=== PATIENT | male | born 1975 | race Caucasian/White ===

== ENCOUNTER 2017-09-12 08:54 | Inpatient (IN) | payer SELFPAY ==
[2017-09-12] VITALS (9 sets, daily range): BP systolic 133–165; BP diastolic 81–105; PULSE 67–76; TEMP 36.6–37.3; O2SAT 95–99; Ht 182.9 cm; Wt 119.0 kg
[~2017-09-12] VITALS: Ht 182.9 cm; Wt 119.0 kg
[2017-09-12 09:22] LABS: BASO % 0.4 %; BASO ABS # 0.05 K/uL (0-0.2); EOS % 0.9 %; HEMATOCRIT 50.4 % (42-52); HEMOGLOBIN 17.8 g/dL (14.0-18.0); IG# 0.03 K/uL (0.00-0.02); LYMPH % 9.9 %; LYMPH ABS # 1.16 K/uL (1.2-3.4); MEAN CELL VOLUME 96.9 fL (80-100); MEAN CORPUSCULAR HEMOGLOBIN 34.2 pg (25-34); MEAN CORPUSCULAR HGB CONC 35.3 g/dl (32-36); MEAN PLATELET VOLUME 11.3 fL (7.4-10.4); MONO % 5.6 %; MONO ABS # 0.66 K/uL (0.11-0.59); NEUT % 82.9 %; PLATELET COUNT 260 K/uL (130-400); RED CELL DISTRIBUTION WIDTH CV 13.1 % (11.5-14.5); RED CELL DISTRIBUTION WIDTH SD 46.8 fL (36.4-46.3)
[2017-09-12] MEDS ORDERED: CBD OIL NEB (09:23)
--- NOTE | 2017-09-12 09:23 | DIAGNOSTIC IMAGING REPORT ---
CHEST ONE VIEW PORTABLE CLINICAL HISTORY: 42 years-old Male presenting with CHEST PAIN, numbness. TECHNIQUE: Portable upright AP view of the chest was obtained. COMPARISON: None. FINDINGS: Cardiomediastinal silhouette normal. Lungs and pleural spaces clear. Osseous structures normal. Upper abdomen normal. IMPRESSION: 1. No acute cardiopulmonary disease. Electronically signed by: Efrain Lobo M.D. 09/12/2017 9:22 AM Dictated Date/Time: 09/12/2017 9:21 AM
[2017-09-12 09:46] LABS: ALBUMIN 4.2 gm/dl (3.4-5.0); CREATININE 1.04 mg/dl (0.60-1.40); TOTAL PROTEIN 7.6 gm/dl (6.4-8.2)
[2017-09-12 09:47] LABS: POTASSIUM 4.1 mmol/L (3.5-5.1)
[2017-09-12] MEDS ORDERED: NITROGLYCERIN 2% OINTMENT 30GM TUBE EXT ONE (10:00)
[2017-09-12] MEDS ORDERED: HEPARIN SOD 5000 UNIT/0.5 ML CARP ONE (10:06)
[2017-09-12] MEDS ORDERED: HEPARIN 25000 UNIT/500 ML D5W ONE (10:06)
[2017-09-12] MEDS ORDERED: ONDANSETRON INJ 2 MG/ML 2 ML VIAL IV PRN (10:15)
[2017-09-12] MEDS ORDERED: NITROGLYCERIN 0.4 MG SL PER TAB CHARGE SL PRN (10:15)
[2017-09-12] MEDS ORDERED: MoRPHine SULFATE 2 MG/ML CARP IV PRN (10:15)
[2017-09-12] MEDS ORDERED: POLYETHYLENE (MIRALAX) 17 GM PACK PO PRN (10:15)
[2017-09-12] MEDS ORDERED: ALUMINUM/MAGNESIUM/SIMETH (MAALOX MAX) 30 ML UDC PO PRN (10:15)
[2017-09-12] MEDS ORDERED: MAGNESIUM HYDROXIDE SUSP 30 ML UDC PO PRN (10:15)
[2017-09-12] MEDS ORDERED: HEPARIN IV LOW DOSE NO BOLUS STA (10:54)
--- NOTE | 2017-09-12 10:54 | History and Physical ---
History & Physical Date & Time of Service: Sep 12, 2017 at 10:38 Chief Complaint: Chest Pain,Numbness Primary Care Physician: No Doctor, Assigned History of Present Illness Source: patient, family 42 year old male smoker presented to the Emergency Room with complaints of intermittent chest pain for the past 1 month. He has not been to the doctors in over 10 years. Two days ago he was carrying some potted plants and developed left sided chest pain that subsided with rest. This morning at 0500 he was awakened by severe left sided chest pain that radiated to his left arm. Maybe some slight shortness of breath associated with it. He denies nausea, vomiting or diaphoresis. No cough, fever or chills and no changes in bowel or bladder function. Maybe some left posterior flank waxing and waning pain over the last month as well. denies significant cardiac history in family, although he is not sure about his dad's health. He has smoked since he was 17. His mom is hospitalized in [place] and he has been running back and forth a lot in the last week. D-dimer was negative. EKG did not have any acute ST elevations and was sinus. CXr was with no active disease. 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 He admits to "very minor" shortness of breath during the episode. This morning around 0500, the patient awoke to a dull ache in his chest and another episode of left arm numbness. He rates his pain as a 5/10 in severity. 4 Aspirin have provided minimal relief. Exertion worsens his pain. He admits to recent car travel back and forth to [place], [place] to visit his Mother who just had surgery. He is a current smoker. He believes there is a family history of hypertension and cardiac disease. The patient admits he has not seen a PCP in over 10 years. Pt denies LOC, headache, fevers, chills, diaphoresis, visual changes, neck pain , nausea, vomiting, abdominal pain, back pain, melena, hematochezia, urinary symptoms, numbness, weakness, lymphadenopathy, rash, or other complaints. Past Medical/Surgical History Medical Problems: (1) Asthma (2) Non-ST elevation (NSTEMI) myocardial infarction (3) Tobacco abuse Past Surgical History Denies any significant surgeries. 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17 Smoking Status: Current Every Day Smoker Smokeless Tobacco Use: No Alcohol Use: was a heavy drinker until 14 years ago, now does not drink Occupational Status: employed Allergies Coded Allergies: Opium (Unverified Adverse Reaction, Intermediate, NAUSEA, 09/12/17) Home Medications Scheduled [Cbd Oil], Unknown Dose NEB DAILY Review of Systems Constitutional: No fever, No chills, No sweats, No weight loss, No weakness, No fatigue, No problem reported Eyes: No worsening of vision, No eye pain, No redness, No discharge, No diplopia, No problem reported ENT: No hearing loss, No unusual epistaxis, No nasal symptoms, No sore throat, No tinnitus, No dental problems, No trouble swallowing, No problem reported Respiratory: No cough, No sputum, No wheezing, No shortness of breath, No dyspnea on exertion, No dyspnea at rest, No hemoptysis, No problem reported Cardiovascular: + chest pain Abdomen: No pain, No nausea, No vomiting, No diarrhea, No constipation, No GI bleeding, No problem reported Musculoskeletal: + problem reported (occassional left flank pain) Genitourinary - Male: No hematuria, No dysuria, No urinary frequency, No urinary urgency, No urinary hesitancy, No urinary retention, No urinary incontinence, No penile discharge, No lesions, No impotence, No problem reported Neurologic: No memory loss, No paralysis, No weakness, No numbness/tingling, No vertigo, No balance problems, No problem reported Psychiatric: No depression symptoms, No anhedonism, No anxiety, No insomnia, No substance abuse, No problem reported Endocrine: No fatigue, No excessive thirst, No excessive urination, No problem reported Hematologic / Lymphatic: No abnormal bleeding/bruising, No clotting problems, No swollen lymph nodes, No night sweats, No problem reported Integumentary: No rash, No itch, No new/changing skin lesions, No color change , No bleeding, No problem reported Allergic / Immunologic: No environmental allergies, No seasonal allergies, No pet sensitivities, No food allergies, No hives, No frequent infections, No poor healing, No prolonged convalescence, No problem reported Physical Exam Vital Signs Date Time Temp Pulse Resp B/P (MAP) Pulse Ox O2 Delivery O2 Flow Rate FiO2 09/12/17 10:21 71 09/12/17 10:17 99 Room Air 09/12/17 09:16 77 09/12/17 09:09 99 Room Air 09/12/17 08:55 36.5 90 20 183/108 98 Room Air 09/12/17 08:55 98 Room Air General Appearance: WD/WN, no apparent distress Head: normocephalic, atraumatic Eyes: normal inspection, PERRL, sclerae normal ENT: hearing grossly normal, pharynx normal Neck: supple, no JVD, no carotid bruits Respiratory/Chest: chest non-tender, lungs clear, normal breath sounds, no respiratory distress Cardiovascular: regular rate, rhythm, no edema, no gallop, no JVD, no murmur, normal peripheral pulses Abdomen/GI: normal bowel sounds, non tender, soft, no organomegaly Back: normal inspection, no CVA tenderness, no muscle spasm Extremities/Musculoskelatal: normal inspection, no calf tenderness, no pedal edema Neurologic/Psych: alert, normal mood/affect, oriented x 3 Skin: normal color, warm/dry, no rash Diagnostics Laboratory Results Results Past 24 Hours Test 09/12/17 09:10 09/12/17 09:15 09/12/17 09:50 Range/Units White Blood Count 11.70 4.8-10.8 K/uL Red Blood Count 5.20 4.7-6.1 M/uL Hemoglobin 17.8 14.0-18.0 g/dL Hematocrit 50.4 42-52 % Mean Corpuscular Volume 96.9 80-100 fL Mean Corpuscular Hemoglobin 34.2 25-34 pg Mean Corpuscular Hemoglobin Concent 35.3 32-36 g/dl Platelet Count 260 130-400 K/uL Mean Platelet Volume 11.3 7.4-10.4 fL Neutrophils (%) (Auto) 82.9 % Lymphocytes (%) (Auto) 9.9 % Monocytes (%) (Auto) 5.6 % Eosinophils (%) (Auto) 0.9 % Basophils (%) (Auto) 0.4 % Neutrophils # (Auto) 9.70 1.4-6.5 K/uL Lymphocytes # (Auto) 1.16 1.2-3.4 K/uL Monocytes # (Auto) 0.66 0.11-0.59 K/uL Eosinophils # (Auto) 0.10 0-0.5 K/uL Basophils # (Auto) 0.05 0-0.2 K/uL RDW Standard Deviation 46.8 36.4-46.3 fL RDW Coefficient of Variation 13.1 11.5-14.5 % Immature Granulocyte % (Auto) 0.3 % Immature Granulocyte # (Auto) 0.03 0.00-0.02 K/uL Sodium Level 139 136-145 mmol/L Potassium Level 4.1 3.5-5.1 mmol/L Chloride Level 108 98-107 mmol/L Carbon Dioxide Level 24 21-32 mmol/L Anion Gap 7.0 3-11 mmol/L Blood Urea Nitrogen 17 7-18 mg/dl Creatinine 1.04 0.60-1.40 mg/dl Est Creatinine Clear Calc Drug Dose 123.0 ml/min Estimated GFR () 101.4 Estimated GFR (Non- 87.5 BUN/Creatinine Ratio 16.4 10-20 Random Glucose 113 70-99 mg/dl Calcium Level 9.0 8.5-10.1 mg/dl Total Bilirubin 1.0 0.2-1 mg/dl Direct Bilirubin 0.2 0-0.2 mg/dl Aspartate Amino Transf (AST/SGOT) 49 15-37 U/L Alanine Aminotransferase (ALT/SGPT) 44 12-78 U/L Alkaline Phosphatase 62 45-117 U/L Total Protein 7.6 6.4-8.2 gm/dl Albumin 4.2 3.4-5.0 gm/dl Lipase 201 73-393 U/L Bedside D-Dimer 271 0-450 ng/mlFEU Bedside Troponin I 1.900 0-0.045 ng/ml Diagnostic Radiology CHEST ONE VIEW PORTABLE CLINICAL HISTORY: 42 years-old Male presenting with CHEST PAIN, numbness. TECHNIQUE: Portable upright AP view of the chest was obtained. COMPARISON: None. FINDINGS: Cardiomediastinal silhouette normal. Lungs and pleural spaces clear. Osseous structures normal. Upper abdomen normal. IMPRESSION: 1. No acute cardiopulmonary disease CXR normal EKG normal sinus rhythm - No acute ST elevations - some t wave depressions in anterolateral leads Impression Assessment and Plan 42 year old smoker who has not been to PCP in more than 10 years presented to the ED with left sided chest pain and left arm pain. 1. NSTEMI - initial troponin 1.9 in the setting of left sided chest pain. - admit to tele - consult cards - cycle trop - ECHO - started on heparin gtt - will continue - check lipids - start ASA 81mg daily - will likely need BB and statin 2. Asthma - PRN Albuterol 3. tobacco abuse - discussed cessation. 4. DVT prophylaxis - teds and he is on heparin gtt. 5. Full code 6. ELS 2 midnight. 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 He has been up to the bathroom and had a few bites of dinner without issue. 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 Pt denies fever, SOB, abd pain, n/v/c/d, LE pain or swelling. General Appearance: WD/WN, no apparent distress Eye Exam: bilateral eye normal inspection, bilateral eye other (nml sclera) Respiratory: normal breath sounds, no respiratory distress Cardiovascular: normal peripheral pulses, regular rate, rhythm Gastrointestinal: non tender, soft Extremities: non-tender, no pedal edema Neurologic/Psychiatric: alert, normal mood/affect, oriented x 3 Skin Characteristics: normal color, warm/dry Assessment/Plan Agree with plan as outlined above Chest pain with elevated trop on admission, now further elevated to 26 with serials pending Heparin gtt ECHO noted for EF 40-45% with areas of severe and moderate hypokinesis CBC, PRP, ddimer WNL CXR neg Cardiology is aware. I spoke with Dr. Brown who plans to watch trops and monitor, plan is for cath with chest pain.
[2017-09-12 11:15] LABS: PTT PATIENT 71.3 SECONDS (21.0-31.0)
[2017-09-12] MEDS: HEPARIN 25,000 UNIT/500ML D5W 500 ML IV SCH ×2 (11:51→19:04)
[2017-09-12] MEDS: ACETAMINOPHEN 325 MG TAB PO PRN ×2 (13:09→20:00)
[2017-09-12] MEDS ORDERED: PERFLUTREN LIPID MICROSPHERE (DEFINITY) IV ONE (14:08)
--- NOTE | 2017-09-12 15:15 | EMERGENCY ROOM VISIT NOTE ---
History Report prepared by Felipeibgracy: Mony Mondragon Under the Supervision of: Dr. Tristen Munoz M.D. First contact with patient: 09:00 Chief Complaint: CHEST PAIN Stated Complaint: CHEST PAIN,NUMBNESS Nursing Triage Summary: Pt has been having chest pain described as a dull aching numbness radiating into his left arm since 0500. This is not the first time he has felt this pain, has not been to a PCP in over a decade. Pain gets worse with exertion, relieved with rest in the past, but today it is not going away. History of Present Illness The patient is a 42 year old male who presents to the Emergency Room with complaints of intermittent chest pain for the past 1 month. 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 He admits to "very minor" shortness of breath during the episode. This morning around 0500, the patient awoke to a dull ache in his chest and another episode of left arm numbness. He rates his pain as a 5/10 in severity. 4 Aspirin have provided minimal relief. Exertion worsens his pain. He admits to recent car travel back and forth to [place], [place] to visit his Mother who just had surgery. He is a current smoker. He believes there is a family history of hypertension and cardiac disease. The patient admits he has not seen a PCP in over 10 years. Pt denies LOC, headache, fevers, chills, diaphoresis, visual changes, neck pain, nausea, vomiting, abdominal pain, back pain, melena, hematochezia, urinary symptoms, numbness, weakness, lymphadenopathy, rash, or other complaints. Source of History: patient Onset: 0500 this morning Position: chest Symptom Intensity: 5/10 Quality: ache, dull Timing: intermittent Modifying Factors (Relieving): other (Aspirin) Associated Symptoms: + SOB Review of Systems See HPI for pertinent positives and negatives. A total of ten systems were reviewed and were otherwise negative. Past Medical & Surgical Medical Problems: (1) Asthma (2) Non-ST elevation (NSTEMI) myocardial infarction (3) Tobacco abuse Family History Heart disease Hypertension Social History Smoking Status: Current Every Day Smoker Alcohol Use: occasionally Drug Use: none Marital Status: single Housing Status: lives with family Occupation Status: employed Current/Historical Medications Scheduled [Cbd Oil], Unknown Dose NEB DAILY Allergies Coded Allergies: Opium (Unverified Adverse Reaction, Intermediate, NAUSEA, 09/12/17) Physical Exam Vital Signs Date Time Temp Pulse Resp B/P (MAP) Pulse Ox O2 Delivery O2 Flow Rate FiO2 09/12/17 09:16 77 09/12/17 09:09 99 Room Air 09/12/17 08:55 36.5 90 20 183/108 98 Room Air 09/12/17 08:55 98 Room Air Physical Exam GENERAL: Awake, alert, well-appearing, in no distress HENT: Normocephalic, atraumatic. Oropharynx unremarkable. EYES: Normal conjunctiva. Sclera non-icteric. NECK: Supple. No nuchal rigidity. FROM. No masses. RESPIRATORY: Clear to auscultation. No wheezes. No rales. Normal respiratory effort. CARDIAC: Normal rate. Normal rhythm. No murmurs. No rubs. Extremities warm and well perfused. Pulses equal. No JVD. GI: Soft, non-distended. No tenderness to palpation. No rebound or guarding. No masses. RECTAL: Deferred. MUSCULOSKELETAL: Atraumatic. Chest examination reveals no tenderness. The back is symmetrical on inspection without obvious abnormality. There is no CVA tenderness to palpation. No joint edema. LOWER EXTREMITIES: Calves are equal size bilaterally and non-tender. No edema. No discoloration. NEURO: Normal sensorium. No sensory or motor deficits noted. SKIN: No rash or jaundice noted. Medical Decision & Procedures ER Provider Diagnostic Interpretation: Radiology results as stated below per my review and radiologist interpretation: CHEST ONE VIEW PORTABLE CLINICAL HISTORY: 42 years-old Male presenting with CHEST PAIN, numbness. TECHNIQUE: Portable upright AP view of the chest was obtained. COMPARISON: None. FINDINGS: Cardiomediastinal silhouette normal. Lungs and pleural spaces clear. Osseous structures normal. Upper abdomen normal. IMPRESSION: 1. No acute cardiopulmonary disease. Electronically signed by: Erfain Lobo M.D. 09/12/2017 9:22 AM Laboratory Results 09/12/17 09:10 Red Blood Count 5.20, Mean Corpuscular Volume 96.9, Mean Corpuscular Hemoglobin 34.2, Mean Corpuscular Hemoglobin Concent 35.3, Mean Platelet Volume 11.3, Neutrophils (%) (Auto) 82.9, Lymphocytes (%) (Auto) 9.9, Monocytes (%) (Auto) 5.6, Eosinophils (%) (Auto) 0.9, Basophils (%) (Auto) 0.4, Neutrophils # (Auto) 9.70, Lymphocytes # (Auto) 1.16, Monocytes # (Auto) 0.66, Eosinophils # (Auto) 0.10, Basophils # (Auto) 0.05 09/12/17 09:10 Test 09/12/17 09:10 09/12/17 09:15 White Blood Count 11.70 K/uL (4.8-10.8) Red Blood Count 5.20 M/uL (4.7-6.1) Hemoglobin 17.8 g/dL (14.0-18.0) Hematocrit 50.4 % (42-52) Mean Corpuscular Volume 96.9 fL (80-100) Mean Corpuscular Hemoglobin 34.2 pg (25-34) Mean Corpuscular Hemoglobin Concent 35.3 g/dl (32-36) Platelet Count 260 K/uL (130-400) Mean Platelet Volume 11.3 fL (7.4-10.4) Neutrophils (%) (Auto) 82.9 % Lymphocytes (%) (Auto) 9.9 % Monocytes (%) (Auto) 5.6 % Eosinophils (%) (Auto) 0.9 % Basophils (%) (Auto) 0.4 % Neutrophils # (Auto) 9.70 K/uL (1.4-6.5) Lymphocytes # (Auto) 1.16 K/uL (1.2-3.4) Monocytes # (Auto) 0.66 K/uL (0.11-0.59) Eosinophils # (Auto) 0.10 K/uL (0-0.5) Basophils # (Auto) 0.05 K/uL (0-0.2) RDW Standard Deviation 46.8 fL (36.4-46.3) RDW Coefficient of Variation 13.1 % (11.5-14.5) Immature Granulocyte % (Auto) 0.3 % Immature Granulocyte # (Auto) 0.03 K/uL (0.00-0.02) Anion Gap 7.0 mmol/L (3-11) Est Creatinine Clear Calc Drug Dose 123.0 ml/min Estimated GFR () 101.4 Estimated GFR (Non- 87.5 BUN/Creatinine Ratio 16.4 (10-20) Calcium Level 9.0 mg/dl (8.5-10.1) Total Bilirubin 1.0 mg/dl (0.2-1) Direct Bilirubin 0.2 mg/dl (0-0.2) Aspartate Amino Transf (AST/SGOT) 49 U/L (15-37) Alanine Aminotransferase (ALT/SGPT) 44 U/L (12-78) Alkaline Phosphatase 62 U/L (45-117) Total Protein 7.6 gm/dl (6.4-8.2) Albumin 4.2 gm/dl (3.4-5.0) Lipase 201 U/L (73-393) Bedside D-Dimer 271 ng/mlFEU (0-450) Bedside Troponin I 1.900 ng/ml (0-0.045) Laboratory results reviewed by me Medications Administered Medications (Trade) Dose Ordered Sig/[facility] Route Start Time Stop Time Status Last Admin Dose Admin Nitroglycerin (Nitroglycerin 2% Oint) 0.5 inch NOW ONCE EXT 09/12/17 10:00 09/12/17 10:01 DC 09/12/17 10:02 0.5 INCH Heparin Sodium/ Dextrose (Heparin 25,000 Unit/500ml D5W) 25,000 unit STK-MED ONCE .ROUTE 09/12/17 10:06 09/12/17 10:07 DC 09/12/17 10:13 25,000 UNIT Heparin Sodium (Porcine) (Heparin Sq 5000 Unit/0.5ml) 5,000 unit STK-MED ONCE .ROUTE 09/12/17 10:06 09/12/17 10:07 DC 09/12/17 10:13 4,000 UNIT ECG Per My Interpretation Indication: chest pain Rate (beats per minute): 80 Rhythm: normal sinus Findings: ST depression (Lateral, mild) Comparison ECG Date: no prior available Change: Patient's electrocardiogram was interpreted by me. ED Course 0908: The patient was evaluated in room B11B. A complete history and physical exam was performed. 0950: Heparin Sodium/Dextrose bolus and drip IV. 0955: I reevaluated the patient. He is resting comfortably. I discussed his results and my recommendation he remain in the hospital for further evaluation and management and he verbalized complete understanding and agreement. 1000: Nitroglycerin 2% 0.5 inch EXT. 1006: I discussed the patients case with ANDER Shipman [facility] Hospitalist. The patient will be further evaluated. Medical Decision Triage Nursing notes reviewed and agree them. Additional history obtained from the family. The patient's history was concerning for chest pain. Differential diagnosis: Etiologies such as cardiac ischemia, aortic dissection, pulmonary embolism, pneumonia, pneumothorax, musculoskeletal, infections, pericarditis, myocarditis , esophageal rupture, gastrointestinal, as well as others were entertained. Physical examination: As above. ER treatment provided: Patient took aspirin at home Nitropaste IV heparin On reassessment the patient felt better. Diagnostic interpretation by me: The electrocardiogram was concerning for some ST depression The labs revealed a slight leukocytosis on CBC. Chemistry panel was unremarkable. The patient had an elevated troponin concerning for ACS. Imaging studies: Chest x-ray as above The patient has suffered a non-STEMI. Further management in the hospital will be necessary. Consultation: A consultation was placed with the hospitalist. The case was discussed and diagnostics were reviewed. The patient was evaluated in the ER for further treatment. Medication Reconcilliation Current Medication List: was personally reviewed by me Blood Pressure Screening Patient's blood pressure: Elevated blood pressure The patients elevated blood pressure will be further managed by the inpatient hospital medicine team. Consults Time Called: 1002 Consulting Physician: ANDER Shipman [facility] Hospitalist Returned Call: 1006 I discussed the patients case with ANDER Shipman [facility] Hospitalist. The patient will be further evaluated. Impression Primary Impression: NSTEMI (non-ST elevated myocardial infarction) Critical Care I have personally spent greater than 30 minutes of critical care time in the direct management of this patient. This includes bedside care, interpretation of diagnostic studies, and testing, discussion with consultants, patient, and family members, and other required patient management activities. This 30 minutes is in excess of all separately billable procedures. Scribe Attestation The scribe's documentation has been prepared under my direction and personally reviewed by me in its entirety. I confirm that the note above accurately reflects all work, treatment, procedures, and medical decision making performed by me. Departure Information Dispostion Being Evaluated By Hospitalist Referrals No Doctor, Assigned (PCP) Patient Instructions [facility]
--- NOTE | 2017-09-12 15:31 | ECHOCARDIOGRAM REPORT ---
*NOTICE TO RECEIVING REPUBLICAN AGENCY This information is strictly Confidential and protected under [place] law. [place] law prohibits you from making any further disclosure of this information unless further disclosure is expressly permitted by the written consent of the person to whom it pertains or is authorized by law. A general authorization for the release of medical or other information is not sufficient for this purpose. Hospital accepts no responsibility if the information is made available to any other person, INCLUDING THE PATIENT. Interpretation Summary * Name: JAMAAL MCCABE Study Date: 09/12/2017 01:08 PM BP: 161/119 mmHg * Patient Location: C.2T\S\S238\S\2 HR: 82 * : 1975 (M/d/yyyy) Gender: Male Height: 72 in * Age: 42 yrs Ethnicity: CA Weight: 266 lb * Ordering Physician: Jose Chan * Referring Physician: Self, Referred * Performed By: Jan Vickers RDCS * * Reason For Study: Chest pain * BSA: 2.4 m2 * -- Conclusions -- * No prior study available for comparison. * The left ventricle is normal in size. * There is borderline concentric left ventricular hypertrophy. * Left ventricular systolic function is mild to moderately reduced. * Ejection Fraction = 40-45%. * There is severe apical wall hypokinesis. * There is severe septal hypokinesis. * There is moderate anterior wall hypokinesis. * There is no thrombus. * No valvular disease. Procedure Details * A complete two-dimensional transthoracic echocardiogram was performed (2D, M-mode, Doppler and color flow Doppler). * The study was technically adequate. * A contrast injection of Definity was performed to improve assessment for apical thrombus. * Contrast was injected into an intravenous site in the right arm. * One vial of Definity ultrasound contrast was diluted in normal saline to a total volume of 10 ml. A total of '5' ml of solution was administered during imaging. * Lot # [id number] of Definity utilized for procedure. * Expiration date 1APR19. * The attending nurse who injected the contrast agent was Nurse, RN. Left Ventricle * The left ventricle is normal in size. * There is no thrombus. * There is borderline concentric left ventricular hypertrophy. * Left ventricular systolic function is mild to moderately reduced. * Ejection Fraction = 40-45%. * There is severe apical wall hypokinesis. * There is severe septal hypokinesis. * There is moderate anterior wall hypokinesis. Right Ventricle * The right ventricle is normal in size and function. Atria * The left atrial size is normal. * Right atrial size is normal. * The interatrial septum is intact with no evidence for an atrial septal defect. Mitral Valve * The mitral valve is normal in structure and function. * There is no mitral regurgitation noted. Tricuspid Valve * The tricuspid valve is normal in structure and function. * Significant tricuspid regurgitation is absent. Aortic Valve * The aortic valve is trileaflet. * No aortic regurgitation is present. Pulmonic Valve * The pulmonic valve is not well seen, but is grossly normal. * There is no significant pulmonary regurgitation. Great Vessels * Aortic arch of normal dimension. * No obvious dissection could be visualized. * The pulmonary artery is normal size. Pericardium/Pleural * There is no pericardial effusion. Great Vessels * Normal inferior vena cava diameter and respiratory variation suggests normal central venous pressure. MMode 2D Measurements and Calculations IVSd 1.1 cm IVSs 1.7 cm LVIDd 5.2 cm LVIDs 3.5 cm LVPWd 0.96 cm LVPWs 1.7 cm IVS/LVPW 1.2 FS 33.9 % EDV(Teich) 132.4 ml ESV(Teich) 49.8 ml EF(Teich) 62.4 % EDV(cubed) 144.7 ml ESV(cubed) 41.8 ml EF(cubed) 71.1 % % IVS thick 50.7 % % LVPW thick 81.1 % LV mass(C)d 205.9 grams LV mass(C)dI 85.6 grams/m\S\2 LV mass(C)s 236.1 grams LV mass(C)sI 98.2 grams/m\S\2 SV(Teich) 82.6 ml SI(Teich) 34.3 ml/m\S\2 SV(cubed) 102.9 ml SI(cubed) 42.8 ml/m\S\2 EPSS 0.37 cm Ao root diam 3.6 cm Ao root area 10.2 cm\S\2 ACS 2.1 cm LA dimension 4.5 cm asc Aorta Diam 3.4 cm LA/Ao 1.2 LVOT diam 2.2 cm LVOT area 3.8 cm\S\2 LVAd ap4 35.8 cm\S\2 LVLd ap4 8.9 cm EDV(MOD-sp4) 115.9 ml EDV(sp4-el) 122.5 ml LVAs ap4 24.1 cm\S\2 LVLs ap4 8.0 cm ESV(MOD-sp4) 57.7 ml ESV(sp4-el) 61.2 ml EF(MOD-sp4) 50.2 % EF(sp4-el) 50.0 % LVAd ap2 40.6 cm\S\2 LVLd ap2 8.8 cm EDV(MOD-sp2) 154.2 ml EDV(sp2-el) 158.5 ml LVAs ap2 26.8 cm\S\2 LVLs ap2 7.6 cm ESV(MOD-sp2) 73.7 ml ESV(sp2-el) 79.8 ml EF(MOD-sp2) 52.2 % EF(sp2-el) 49.6 % LVLd %diff -0.64 % EDV(MOD-bp) 135.7 ml LVLs %diff -5.10 % ESV(MOD-bp) 66.6 ml EF(MOD-bp) 51.0 % SV(MOD-sp4) 58.2 ml SI(MOD-sp4) 24.2 ml/m\S\2 SV(MOD-sp2) 80.5 ml SI(MOD-sp2) 33.5 ml/m\S\2 SV(MOD-bp) 69.2 ml SI(MOD-bp) 28.8 ml/m\S\2 SV(sp4-el) 61.3 ml SI(sp4-el) 25.5 ml/m\S\2 SV(sp2-el) 78.7 ml SI(sp2-el) 32.7 ml/m\S\2 Doppler Measurements and Calculations MV E max misty 88.9 cm/sec MV A max misty 65.7 cm/sec MV E/A 1.4 MV dec time 0.17 sec Ao V2 max 116.3 cm/sec Ao max PG 5.4 mmHg Ao max PG (full) 1.7 mmHg MIRNA(V,A) 3.1 cm\S\2 MIRNA(V,D) 3.1 cm\S\2 LV V1 max PG 3.7 mmHg LV V1 max 96.4 cm/sec PA V2 max 101.8 cm/sec PA max PG 4.1 mmHg PA acc slope 469.4 cm/sec\S\2 PA acc time 0.15 sec PA pr(Accel) 10.3 mmHg
[2017-09-12] MEDS ORDERED: TICAGRELOR 90 MG TAB PO STA (16:25)
[2017-09-12] MEDS ORDERED: ASPIRIN 81 MG CHEW PO STA (16:25)
[2017-09-12] MEDS ORDERED: ATORVASTATIN 40 MG TAB PO ONE (16:35)
[2017-09-12] MEDS ORDERED: METOPROLOL TARTRATE 50 MG TAB PO STA (16:35)
[2017-09-12] MEDS ORDERED: CLONIDINE HCL 0.1 MG TAB PO PRN (16:45)
[2017-09-12 18:32] LABS: PTT PATIENT 30.8 SECONDS (21.0-31.0)
[2017-09-12] MEDS ORDERED: HEPARIN IV BOLUS 4,500 UNIT in SYRINGE 0 ML IV ONE (19:00)
[2017-09-12] MEDS: METOPROLOL TARTRATE 50 MG TAB PO SCH (21:48)
[2017-09-13] VITALS (7 sets, daily range): BP systolic 100–132; BP diastolic 67–89; PULSE 65–80; TEMP 36.8–37.2; O2SAT 95–97
[2017-09-13 01:21] LABS: PTT PATIENT 37.9 SECONDS (21.0-31.0)
[2017-09-13] MEDS: HEPARIN 25,000 UNIT/500ML D5W 500 ML IV SCH ×3 (01:59→20:57)
[2017-09-13] MEDS ORDERED: HEPARIN IV BOLUS 4,500 UNIT in SYRINGE 0 ML IV ONE ×2 (02:00→20:45)
[2017-09-13 04:38] LABS: PTT PATIENT 85.3 SECONDS (21.0-31.0)
[2017-09-13] MEDS: METOPROLOL TARTRATE 50 MG TAB PO SCH ×3 (05:52→20:56)
[2017-09-13 08:35] LABS: PTT PATIENT 46.9 SECONDS (21.0-31.0)
--- NOTE | 2017-09-13 08:45 | Cardiology Consultation ---
Cardiology Consultation Date of Service Sep 13, 2017. Cardiology Consultation Date of Service Sep 12, 2017. Cardiology Consultation CARDIOLOGY CONSULTATION DATE OF CONSULTATION: September 12, 2017 REFERRING PHYSICIAN: Ty Benz MD REASON FOR CONSULT: Non-STEMI HISTORY OF PRESENT ILLNESS: 42-year-old man with longstanding smoking history, no other major cardiac risk factors, who has not seen a physician for many years and was admitted after several episodes of chest pain with nonspecific ECG findings and a modest initial troponin elevation. Subsequent ECG changes, marked rise in troponin, and echocardiographic findings all suggest that he may have had a moderate- sized apical myocardial infarction early this morning. He had been very physically active years ago, but lifestyle changes have prompted him to be more sedentary in recent years. He denies any exertional chest pain or dyspnea prior to 2 days ago when he had significant achy heaviness in his chest with left shoulder and upper arm paresthesias while walking up stairs carrying flower bases while visiting his mother in [facility]. The symptoms resolved fairly promptly, but he awoke this morning with 5/10 chest heaviness at 5 a.m. associated with mild dyspnea and left shoulder/arm paresthesia. His symptoms lasted approximately 4 hours and resolved around the time he was admitted. He denies any diaphoresis, nausea, vomiting, back pain, neurologic symptoms, palpitations, presyncope, or syncope. He felt generally weak but denies any chest pain at the time of my evaluation. MEDICATIONS: CBD Oil ALLERGIES: Opiate derivative caused nausea PAST MEDICAL HISTORY: Longstanding but well-controlled asthma. No known hypertension, diabetes, kidney, liver, or valvular heart disease PAST SURGICAL HISTORY: None. 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 Regular smoker. Former heavy alcohol, quit 14 years ago. FAMILY HISTORY: Grandparents with coronary artery disease. REVIEW OF SYSTEMS: As per admission H&P, generally unremarkable. PHYSICAL EXAMINATION: Middle-aged large habitus white male appears mildly uncomfortable but not acutely distressed. Vitals: Afebrile. BP 137/90, pulse 71 irregular, respirations 18 and unlabored. Skin: No unusual lesions or ecchymosis. HEENT: Unremarkable. Neck: Jugular venous pulse at the clavicle at 90, no carotid bruits. Lungs: Clear and equal breath sounds bilaterally. No wheezing or crackles. Cardiac: Regular rhythm with normal S1 and S 2. No murmur or gallop. Abdomen: Benign. Extremities: Nontender without edema. Intact peripheral pulses. Neurologic: Normal affect, nonfocal DATA: Initial ECG showed sinus rhythm at 80 bpm with anterior Q-waves but no ST deviation or T-wave abnormalities, there was [address] elevation in lead III with small inferior Q-waves. Subsequent ECG showed larger Q-waves inferiorly and new T-wave inversions anteriorly. The minor ST elevation in lead IIIhad resolved in the anterior leads had isoelectric ST segments. Admission chest x-ray was unremarkable. White count 11.7 with normal hemoglobin and platelet count. D-dimer normal at 271. Baseline INR normal at 1.0. Normal electrolytes, BUN 17, creatinine 1.04, glucose 113. AST minimally elevated of 49, normal ALT. Initial troponin 1.9, value 6 hours later was 26.9. Echocardiogram today showed moderate size area of apical and distal septal severe hypokinesis with moderate distal anterior hypokinesis, remaining fernández move normally. Ejection fraction 40-45 %. No significant valvular disease and no LV thrombus on echogenic contrast. IMPRESSION: 1. Acute apical myocardial infarction, no chest pain currently. 2. History of asthma, no bronchospasm currently. 3. Longstanding tobacco smoker, plans on abstinence. 4. Otherwise healthy 42-year-old man. DISCUSSION: Patient with acute apical infarct which did not fit criteria for heart alert due to nonspecific ECG (absence of ST elevation in 2 leads) as well as his initially minor troponin elevation and subsequent symptom resolution. Given the timing of troponin elevation and the dynamic nature of his second ECG, suspect his infarct occurred this morning, although it is possible some initial damage occurred 2 days ago with additional ischemic involvement earlier today. Fortunately, he has no further chest discomfort presently, thus there is low utility to proceeding to to urgent cardiac catheterization immediately. Will load with ticagrelor and aspirin, followed by maintenance doses. Will initiate statin and beta-freedom. He has sublingual nitroglycerin ordered for PRN use will hold nitropaste due to his development of a headache after it was applied. PRN clonidine ordered for any recurrent hypertension, since he did have an elevated blood pressure earlier today. If he has recurrent chest pain, would proceed to urgent catheterization, since this would indicate myocardium at risk and viability of the involved apical segment. Will follow along closely, please contact for a change in clinical status.
[2017-09-13] MEDS: TICAGRELOR 90 MG TAB PO SCH ×3 (09:00→20:56)
[2017-09-13] MEDS: ASPIRIN 81 MG ECTAB PO SCH (09:39)
[2017-09-13] MEDS: ATORVASTATIN 40 MG TAB PO SCH (09:39)
--- NOTE | 2017-09-13 14:34 | Progress Note ---
Subjective Date of Service: Sep 13, 2017. Subjective no further chest pain overnight some mild possible reperfusion arrythmias Problem List Medical Problems: (1) NSTEMI (non-ST elevated myocardial infarction) Status: Acute Review of Systems Constitutional: No fever, No chills Respiratory: No cough, No sputum Cardiac: No chest pain, No edema Abdomen: No pain, No diarrhea Musculoskeletal: No joint pain, No muscle pain Psychiatric: No depression symptoms, No anxiety Objective Vital Signs Date Time Temp Pulse Resp B/P (MAP) Pulse Ox O2 Delivery O2 Flow Rate FiO2 09/13/17 05:51 77 124/78 (93) 09/13/17 04:00 Room Air 09/13/17 03:11 37.1 67 20 132/89 (103) 95 Room Air 09/12/17 23:59 Room Air 09/12/17 23:48 36.9 69 17 144/87 (106) 96 Room Air 09/12/17 21:48 76 142/91 (108) 09/12/17 20:00 Room Air 09/12/17 19:46 37.3 73 18 148/94 (112) 96 Room Air 09/12/17 18:14 37.0 67 16 143/95 (111) 95 Room Air 09/12/17 17:18 36.6 74 18 161/105 (123) 96 Room Air 09/12/17 16:38 36.6 73 18 133/81 (98) 97 Nasal Cannula 1.0 09/12/17 16:00 Room Air 09/12/17 14:20 71 137/90 (106) 09/12/17 12:00 Room Air 09/12/17 11:41 37.1 72 18 156/102 (120) 96 165/103 (123) 09/12/17 10:46 64 20 161/119 99 Room Air 09/12/17 10:21 71 09/12/17 10:17 99 Room Air 09/12/17 09:16 77 09/12/17 09:09 99 Room Air 09/12/17 08:55 36.5 90 20 183/108 98 Room Air 09/12/17 08:55 98 Room Air Physical Exam General Appearance: WD/WN, no apparent distress Eyes: normal inspection, sclerae normal Neck: supple, no JVD Respiratory/Chest: chest non-tender, lungs clear, normal breath sounds Cardiovascular: regular rate, rhythm, no murmur Abdomen: normal bowel sounds, non tender, soft Extremities: no pedal edema, no calf tenderness Neurologic/Psychiatric: alert, oriented x 3 Laboratory Results Last 24 Hours Test 09/12/17 09:10 09/12/17 09:15 09/12/17 10:41 09/12/17 15:03 White Blood Count 11.70 K/uL Red Blood Count 5.20 M/uL Hemoglobin 17.8 g/dL Hematocrit 50.4 % Mean Corpuscular Volume 96.9 fL Mean Corpuscular Hemoglobin 34.2 pg Mean Corpuscular Hemoglobin Concent 35.3 g/dl Platelet Count 260 K/uL Mean Platelet Volume 11.3 fL Neutrophils (%) (Auto) 82.9 % Lymphocytes (%) (Auto) 9.9 % Monocytes (%) (Auto) 5.6 % Eosinophils (%) (Auto) 0.9 % Basophils (%) (Auto) 0.4 % Neutrophils # (Auto) 9.70 K/uL Lymphocytes # (Auto) 1.16 K/uL Monocytes # (Auto) 0.66 K/uL Eosinophils # (Auto) 0.10 K/uL Basophils # (Auto) 0.05 K/uL RDW Standard Deviation 46.8 fL RDW Coefficient of Variation 13.1 % Immature Granulocyte % (Auto) 0.3 % Immature Granulocyte # (Auto) 0.03 K/uL Sodium Level 139 mmol/L Potassium Level 4.1 mmol/L Chloride Level 108 mmol/L Carbon Dioxide Level 24 mmol/L Anion Gap 7.0 mmol/L Blood Urea Nitrogen 17 mg/dl Creatinine 1.04 mg/dl Est Creatinine Clear Calc Drug Dose 123.0 ml/min Estimated GFR () 101.4 Estimated GFR (Non- 87.5 BUN/Creatinine Ratio 16.4 Random Glucose 113 mg/dl Calcium Level 9.0 mg/dl Total Bilirubin 1.0 mg/dl Direct Bilirubin 0.2 mg/dl Aspartate Amino Transf (AST/SGOT) 49 U/L Alanine Aminotransferase (ALT/SGPT) 44 U/L Alkaline Phosphatase 62 U/L Total Protein 7.6 gm/dl Albumin 4.2 gm/dl Lipase 201 U/L Bedside D-Dimer 271 ng/mlFEU Bedside Troponin I 1.900 ng/ml Prothrombin Time 10.9 SECONDS Prothromb Time International Ratio 1.0 Activated Partial Thromboplast Time 71.3 SECONDS Partial Thromboplastin Ratio 2.7 Troponin I 26.900 ng/ml Test 09/12/17 18:09 09/12/17 21:02 09/13/17 00:56 09/13/17 03:38 Activated Partial Thromboplast Time 30.8 SECONDS 37.9 SECONDS 85.3 SECONDS Partial Thromboplastin Ratio 1.2 1.5 3.3 Troponin I 33.000 ng/ml 27.300 ng/ml Triglycerides Level 83 mg/dl Cholesterol Level 150 mg/dl HDL Cholesterol 36 mg/dl LDL Cholesterol, Calculated 97 mg/dl VLDL Cholesterol, Calculated 17 mg/dl Cholesterol/HDL Ratio 4.2 Test 09/13/17 07:55 Activated Partial Thromboplast Time 46.9 SECONDS Partial Thromboplastin Ratio 1.8 Assessment and Plan 42 year old smoker presented to the ED with left sided chest pain and left arm pain, has elevated troponin and T wave changes, no further pain since IV heparin but some brief tachyarrhythmias NSTEMI - troponin has crested at 33, on heparin gtt, consider loading with Brillinta - ECHO shows possible apical issue, for C this week unless decompensation - start ASA 81mg daily - metoprolol and artorvostatin Reperfusion arrythmia overnight? cardiology has increased metoprolol to q8 Asthma - is stable , PRN Albuterol tobacco abuse - discussed cessation. also discusses salt, healthy diet caffeine and alcohol use DVT prophylaxis - teds and he is on heparin gtt. Full code
--- NOTE | 2017-09-13 14:38 | Cardiology Follow-Up ---
Cardiology Follow-Up Date of Service Sep 13, 2017. Cardiology Follow-Up SUBJECTIVE: 42-year-old man with longstanding smoking history, no other major cardiac risk factors, who has not seen a physician for many years and was admitted after several episodes of chest pain with nonspecific ECG findings and a modest initial troponin elevation. Subsequent ECG changes, marked rise in troponin, and echocardiographic findings all suggest that he may have had a moderate- sized apical myocardial infarction yesterday morning. His headache resolved after removal of nitropaste and he has had no chest pain since yesterday. He feels generally weak but has no other complaints. PHYSICAL EXAMINATION: Middle-aged large habitus white male appears fairly comfortable today. Vitals: Afebrile. BP 110/73, pulse 73 and regular, respirations 18 and unlabored. Skin: No unusual lesions or ecchymosis. HEENT: Unremarkable. Neck: Jugular venous pulse at the clavicle at 90, no carotid bruits. Lungs: Clear and equal breath sounds bilaterally. No wheezing or crackles. Cardiac: Regular rhythm with normal S1 and S2. No murmur or gallop. Abdomen: Benign. Extremities: Nontender without edema. Intact peripheral pulses. Neurologic: Normal affect, nonfocal DATA: ECG today showed sinus rhythm at 71 bpm with anterior and inferior Q-waves as well as anterior T wave inversions. No change compared with ECG from yesterday afternooon. Monitor with 10 second asymptomatic run of V-tach last evening, otherwise benign. PTT 46.5 on heparin. Troponin peaked at 33 before dropping to 27.3 this morning. Cholesterol 150, HDL is 36, LDL 97, ratio 4.2, triglycerides 83 Echocardiogram 09/12 showed moderate size area of apical and distal septal severe hypokinesis with moderate distal anterior hypokinesis, remaining fernández move normally. Ejection fraction 40-45 %. No significant valvular disease and no LV thrombus on echogenic contrast. IMPRESSION: 1. Acute apical myocardial infarction, no chest pain since 09/12. 2. History of asthma, no bronchospasm currently. 3. Longstanding tobacco smoker, plans on abstinence. 4. Otherwise healthy 42-year-old man. DISCUSSION: Patient with acute apical infarct which did not fit criteria for heart alert due to nonspecific ECG (absence of ST elevation in 2 leads) as well as his initially minor troponin elevation and subsequent symptom resolution. Given the timing of troponin elevation and the dynamic nature of his second ECG, suspect his infarct occurred yesterday morning. Did discuss the risks and benefits as well as the importance of defining coronary anatomy further through cardiac catheterization. Given the lack of any chest discomfort presently, thus there is low utility to proceeding to to urgent cardiac catheterization immediately, rather will proceed with study tomorrow. Loaded with ticagrelor and aspirin, on maintenance doses of both. Statin and beta-freedom initiated. PRN clonidine ordered for any recurrent hypertension. If he has recurrent chest pain, would proceed to urgent catheterization, since this would indicate myocardium at risk and viability of the involved apical segment. Will follow along closely, please contact for any change in clinical status.
[2017-09-13 20:13] LABS: PTT PATIENT 36.8 SECONDS (21.0-31.0)
[2017-09-14] VITALS (18 sets, daily range): BP systolic 101–131; BP diastolic 62–85; PULSE 63–80; TEMP 36.5–37.4; O2SAT 94–97
[2017-09-14 03:48] LABS: PTT PATIENT 58.3 SECONDS (21.0-31.0)
[2017-09-14] MEDS: HEPARIN 25,000 UNIT/500ML D5W 500 ML IV SCH (03:55)
[2017-09-14] MEDS: METOPROLOL TARTRATE 50 MG TAB PO SCH ×3 (05:49→21:01)
[2017-09-14 06:44] LABS: HEMATOCRIT 46.6 % (42-52); HEMOGLOBIN 16.3 g/dL (14.0-18.0); MEAN CELL VOLUME 96.3 fL (80-100); MEAN CORPUSCULAR HEMOGLOBIN 33.7 pg (25-34); MEAN PLATELET VOLUME 11.2 fL (7.4-10.4); PLATELET COUNT 234 K/uL (130-400); RED CELL DISTRIBUTION WIDTH CV 13.4 % (11.5-14.5); RED CELL DISTRIBUTION WIDTH SD 47.7 fL (36.4-46.3); WHITE BLOOD COUNT 9.91 K/uL (4.8-10.8)
[2017-09-14 09:13] LABS: CREATININE 1.02 mg/dl (0.60-1.40)
[2017-09-14] MEDS: ATORVASTATIN 40 MG TAB PO SCH (09:13)
[2017-09-14 09:14] LABS: CALCIUM 8.6 mg/dl (8.5-10.1); POTASSIUM 3.7 mmol/L (3.5-5.1)
[2017-09-14] MEDS: TICAGRELOR 90 MG TAB PO SCH ×2 (09:15→21:00)
[2017-09-14] MEDS: ASPIRIN 81 MG ECTAB PO SCH (09:15)
[2017-09-14] MEDS ORDERED: HEPARIN SOD (PORCINE) 1000 UNIT/ML 10 ML VIAL ONE (10:16)
[2017-09-14] MEDS ORDERED: FENTANYL CITRATE INJ 50 MCG/1 ML 2 ML VIAL ONE (10:16)
[2017-09-14] MEDS ORDERED: MIDAZOLAM HCL 1 MG/ML 2ML VIAL ONE (10:16)
[2017-09-14] MEDS ORDERED: NiCARDipine HCL INJ 2.5 MG/ML 10 ML AMP ONE (10:17)
[2017-09-14] MEDS ORDERED: NITROGLYCERIN/D5W 100MCG/ML 20ML SYR ONE (10:17)
--- NOTE | 2017-09-14 11:10 | Cardiology Follow-Up ---
Subjective Subjective Date of Service: Sep 14, 2017. Pt evaluation today including: conversation w/ patient, conversation w/ family , physical exam, chart review, lab review, review of studies, review of inpatient medication list Additional Details: No recurrent chest pain. No other new complaints. Problem List Medical Problems: (1) NSTEMI (non-ST elevated myocardial infarction) Status: Acute Review of Systems Constitutional: No fever, No chills Respiratory: No cough, No sputum Cardiac: No chest pain, No edema Abdomen: No pain, No diarrhea Musculoskeletal: No joint pain, No muscle pain Psychiatric: No depression symptoms, No anxiety Objective Vital Signs Last Vital Signs Documentation Date Time Temp Pulse Resp B/P (MAP) Pulse Ox O2 Delivery O2 Flow Rate FiO2 09/14/17 08:00 94 Room Air 09/14/17 07:53 36.5 63 18 125/69 (87) 09/12/17 16:38 1.0 Physical Exam: General Appearance: no apparent distress Eyes: bilateral eyes normal inspection, bilateral eyes pertinent finding (nml sclera) Neck: supple, no JVD Respiratory/Chest: chest non-tender, lungs clear, normal breath sounds Cardiovascular: regular rate, rhythm, no murmur Abdomen: normal bowel sounds, non tender, soft Extremities: no pedal edema, no calf tenderness Neurologic/Psychiatric: alert, oriented x 3 Assessment and Plan 1. NSTEMI 2. LV dysfunction/ICM 3. Hypertension 4. Dyslipidemia 5. Ongoing Tobacco Patient has remained chest pain free since Thursday morning. Troponin peaked. Plan to proceed with cardiac catheterization today. Further recommendations pending findings. Medications: Current Inpatient Medications Medications (Trade) Dose Ordered Sig/Kt Route Start Time Stop Time Status Last Admin Dose Admin Acetaminophen (Tylenol Tab) 650 mg Q4H PRN PO 09/12/17 10:15 10/12/17 10:14 09/12/17 20:00 650 MG Al Hydrox/Mg Hydrox/Simethicone (Maalox Max Susp) 15 ml Q4H PRN PO 09/12/17 10:15 10/12/17 10:14 Magnesium Hydroxide (Milk Of Magnesia Susp) 30 ml Q12H PRN PO 09/12/17 10:15 10/12/17 10:14 Ondansetron HCl (Zofran Inj) 4 mg Q6H PRN IV 09/12/17 10:15 10/12/17 10:14 Nitroglycerin (Nitrostat Tab) 0.4 mg UD PRN SL 09/12/17 10:15 10/12/17 10:14 Morphine Sulfate (MoRPHine SULFATE INJ) 2 mg Q30M PRN IV 09/12/17 10:15 09/26/17 10:14 Aspirin (Ecotrin Tab) 81 mg QAM PO 09/13/17 09:00 10/13/17 08:59 09/14/17 09:15 81 MG Polyethylene (Miralax Powder Packet) 17 gm DAILY PRN PO 09/12/17 10:15 10/12/17 10:14 Heparin Sodium/ Dextrose 500 ml @ 30 mls/hr [id number] IV 09/12/17 10:30 10/12/17 10:29 09/14/17 03:55 30 MLS/HR Ticagrelor (Brilinta Tab) 90 mg BID PO 09/13/17 07:00 10/05/17 06:59 09/14/17 09:15 90 MG Metoprolol Tartrate (Lopressor Tab) 50 mg Q8 PO 09/12/17 22:00 10/12/17 21:59 09/14/17 05:49 50 MG Atorvastatin Calcium (Lipitor Tab) 80 mg QAM PO 09/13/17 09:00 10/13/17 08:59 09/14/17 09:13 80 MG Clonidine HCl (Catapres Tab) 0.1 mg Q8 PRN PO 09/12/17 16:45 10/12/17 16:44 Lab Results: 09/14/17 06:20 09/14/17 06:20 Test 09/14/17 03:03 09/14/17 06:20 Activated Partial Thromboplast Time 58.3 SECONDS (21.0-31.0) Partial Thromboplastin Ratio 2.2 Red Blood Count 4.84 M/uL (4.7-6.1) Mean Corpuscular Volume 96.3 fL (80-100) Mean Corpuscular Hemoglobin 33.7 pg (25-34) Mean Corpuscular Hemoglobin Concent 35.0 g/dl (32-36) RDW Standard Deviation 47.7 fL (36.4-46.3) RDW Coefficient of Variation 13.4 % (11.5-14.5) Mean Platelet Volume 11.2 fL (7.4-10.4) Anion Gap 6.0 mmol/L (3-11) Est Creatinine Clear Calc Drug Dose 124.0 ml/min Estimated GFR () 103.9 Estimated GFR (Non- 89.6 BUN/Creatinine Ratio 12.5 (10-20) Calcium Level 8.6 mg/dl (8.5-10.1)
--- NOTE | 2017-09-14 11:11 | Pre Sedation Assessment ---
Pre Sedation Assessment General Date of Sedation: Sep 14, 2017. Vital Signs Past 12 Hours Date Time Temp Pulse Resp B/P (MAP) Pulse Ox O2 Delivery O2 Flow Rate FiO2 09/14/17 08:00 94 Room Air 09/14/17 07:53 36.5 63 18 125/69 (87) 94 09/14/17 05:48 64 120/74 (89) 09/14/17 04:00 Room Air 09/14/17 03:11 36.7 65 18 101/62 (75) 97 Room Air 09/14/17 00:01 Room Air 09/13/17 23:46 36.9 65 18 100/67 (78) 97 Room Air Review Cardiovascular: regular rate, rhythm, no edema Lungs: chest non-tender, lungs clear Pre-Sedation Airway Assessment Smoking Status: Current Every Day Smoker Hx of Sleep Apnea: No Hx of difficult intubation: No Short Thick Neck: No Thyro-mental Distance: > 3 Finger Breadths Oral Cavity: Dental Abnormalities Mallampati Classification: Class II ASA Classification: Class III Procedure Planning Contraindications for Sedation: None Current Medications Reviewed: Yes Notes The planned sedation has been discussed with the patient. Informed Consent was obtained. I have identified the patient, determined the appropriateness of sedation and have assessed the patient immediately prior to the procedure. All medicine(s) and interventions are by my order.
[2017-09-14] MEDS ORDERED: LIDOCAINE HCL 1% 20 ML VIAL ONE (11:15)
--- NOTE | 2017-09-14 13:05 | [facility] Post Operative Brief Note ---
Preliminary Procedure Note Procedure Date Sep 14, 2017. Pre-Procedure Diagnosis Non STEMI AUC Score 8 Post-Procedure Diagnosis Severe CAD Procedure(s) Performed Coronary Angiography, Left Heart Cath, Drug Eluting Stent Staff Scientist Kevin Dispatch Clerk(s) Calvin Estimated Blood Loss 15 Medication(s) Fentanyl, Heparin, Nicardipine, Nitroglycerin, Versed, Lidocaine 1% Preliminary Findings Severe 2 vessel coronary artery disease - Occluded proximal RCA with left to right collaterals - 99% mid LAD Successful PCI of proximal to mid LAD with single MARY Recommendations PCI without planned CABG Specimens None Anesthesia Moderate Procedural Complication(s) None Disposition PCU
--- NOTE | 2017-09-14 13:06 | Post Sedation Assessment ---
Post Sedation Assessment General Date of Sedation Sep 14, 2017. Vital Signs: Vital Signs Past 12 Hours Date Time Temp Pulse Resp B/P (MAP) Pulse Ox O2 Delivery O2 Flow Rate FiO2 09/14/17 08:00 94 Room Air 09/14/17 07:53 36.5 63 18 125/69 (87) 94 09/14/17 05:48 64 120/74 (89) 09/14/17 04:00 Room Air 09/14/17 03:11 36.7 65 18 101/62 (75) 97 Room Air 09/14/17 00:01 Room Air 09/13/17 23:46 36.9 65 18 100/67 (78) 97 Room Air Post Procedure Recovery Score Activity: (2) Moves 4 extremities * Respiration: (2) Deep breath/cough Circulation: (2) +/-20% PreAnes Value Consciousness: (2) Fully Awake Oxygen Saturation: (1) O2 needed for >90% Discharge Sedation Level of Care: Fast Track Phase II Post Sedation Plan On clinical assessment, the patient appears to have tolerated the sedation without complications. Patient is recovering as anticipated. Patient will continue to be monitored by nursing and may be discharged when sedation discharge criteria are met per below protocol. Upon Completions of procedure and additional 15 minutes continue every 5 minute vital signs and the P.A.R. score; then discharge to a Phase I or Fast Track to Phase II per the following guidelines: * Discharge Patient to appropriate Phase II area if PAR is 8 or greater or return to pre- procedure baseline. The post - procedure orders will be as directed. * If PAR score is less than 8 or not return to pre-procedure baseline then patient will follow Phase I monitoring till PAR is reached for Phase II. The Phase I may be done in procedure room or may call to secure a Phase I area. * If naloxone or flumazenil are used for reversal, hold in Phase I for an additional 60 -120 minutes before discharge to Phase II. Please call the Sedation Physician to re-evaluate and complete post-note for discharge to Phase II area. Do NOT discharge from procedure sedation or Phase 1 until post- sedation evaluation note is complete by procedure /sedation MD Sedation Discharge Instructions to be given to the patient at discharge to home.
[2017-09-14] MEDS ORDERED: SODIUM CHLORIDE 0.9% 1000ML 1,000 ML IV SCH (13:15)
--- NOTE | 2017-09-14 13:18 | Cardiac Catheterization ---
Procedure Note Procedure Date Sep 14, 2017. Pre-Procedure Diagnosis Non STEMI AUC Score 8 Post-Procedure Diagnosis Severe CAD, Successful PCI, Normal Intracardiac Pressures Procedure(s) Performed Coronary Angiography, Left Heart Cath, Drug Eluting Stent Manager Voice Kevin Manager Statistics(s) Calvin Estimated Blood Loss 15 Medication(s) Fentanyl, Heparin, Nicardipine, Nitroglycerin, Versed, Lidocaine 1% Summary of Findings Indication: High-risk NSTEMI Access: 6Fr right radial Catheters: [place], JL3.5; EBU 3.5 guide Findings: LM - Angiographically normal LAD - Large caliber vessel, 99% calcified mid LAD; REGINA 1-2 flow in late mid to distal LAD Circumflex - Large caliber vessel, luminal irregularities RCA - Chronic 100% occlusion in proximal vessel. Distal vessel fills vial left to right collaterals from circumflex and proximal septals LVEDP - 10 -- PCI -- Antithrombotic therapy: Heparin, Ticagrelor Procedure: LM cannulated with EBU 3.5 guide Shot Coat Tender 50 wire passed across lesion into distal vessel Mid LAD lesion predilated with 2.5 compliant balloon Prowater wire placed into 2nd diagonal Mid LAD re-dilated with 2.5 balloon. Dilated lesion stented with 3.5 x 38 Cesar MARY 2nd diagonal re-wired with whisper wire 2nd diagonal ostium/stent struts dilated with 2.0 balloon. Stent post-dilated with 4.0 noncompliant balloon IC vasodilators administered for spasm Post procedure REGINA 3 flow, stent well expanded with minimal residual stenosis and no apparent cardiac complications. Arterial Closure: TR Band Summary: 1. Severe 2 vessel coronary artery disease - 100% [employer] proximal RCA fills via left to right collaterals - 99% mid LAD 2. Normal intracardiac filling pressure 3. Successful PCI of proximal to mid LAD with single MARY (3.5 x 38 [place] MARY; post-dilated with 4.0 NC) Recommendations: To PCU for continued monitoring Loaded with Ticagrelor prior to clinical laboratory technician Continue dual-antiplatelet therapy for at least 1 year Continue statin, and ASCVD risk factor modification Consult cardiac Rehab Hemodynamics Rest Ao: 97/67/81 Final Ao: 120/74/96 LV: 97/10 Recommendations PCI without planned CABG Specimens None Radiation Exposure (mGy) 4019 Contrast (mls) 140 Fluids (cc crystalloids) 183 Drains None Anesthesia Moderate Procedural Complication(s) None Disposition PCU ACC Data Cardiac Status Clinical evaluation leading to the procedure CAD Presntation: Non STEMI Anginal Classification: CCS IV Heart Failure: No, NYHA Class: CCS I Cardiogenic Shock w/in 24Hrs: No Cardiac Arrest w/in 24Hrs: No Imaging studies past 6 months: Yes Stress studies past 6 months: No Diagnostic Status: Elective Closure Device Percutaneous Entry Location: Radial Closure Device: Radial Band Recommendations: PCI without planned CABG PCI Indication: PCI for high risk Non-STEMI Lesion Segment Name: mid LAD Culprit Artery: Yes Stenosis Prior to Rx (%): 99 Chronic Total Occlusion: No IVUS: No FFR: No Pre-Procedure REGINA Flow: 1 Previously Treated Lesion: No Lesion Complexity: Non-High/Non-C Lesion Length (mm): 30 Thrombus Present: Yes Bifurcation Lesion: Yes Guidewire Across Lesion: Yes Guidewire: Stenosis Post-Procedure (%): 0 Post-Procedure REGINA Flow: 3 Device(s) Deployed: Yes Intraprocedure Events Significant Dissection: No Perforation: No
--- NOTE | 2017-09-14 15:39 | Hospitalist Progress Note ---
Hospitalist Progress Note Date of Service Sep 14, 2017. (Carmella Pinzon ., FARHANAC) Subjective Pt evaluation today including: conversation w/ patient, conversation w/ family (significant other at bedside), physical exam, chart review, lab review, conversation w/ tour consultant (cardiology), review of inpatient medication list Pain: None Voiding: no voiding problems Patient reports feeling groggy following his catheterization. He denies any chest pain. The patient had shortness of breath right after his cath, but this is now improved. He has not yet eaten or urinated after the cath but had not been having issues with these prior. The patient denies fevers, chills, sweats , chest pain, palpitations, claudication, cough, wheezing, shortness of breath, nausea, vomiting, abdominal pain, dysuria, hematuria, urinary retention, paralysis, weakness, numbness and tingling. Additional Comments: See HPI for pertinent positives and negatives. All other systems reviewed and negative. (Carmella Pinzon ., DIANNE-C) Objective Vital Signs Date Time Temp Pulse Resp B/P (MAP) Pulse Ox O2 Delivery O2 Flow Rate FiO2 09/14/17 15:03 66 17 108/79 (89) 96 Room Air 09/14/17 14:33 66 17 112/78 (89) 97 Nasal Cannula 2.0 09/14/17 14:03 65 16 108/79 (89) 95 Nasal Cannula 2.0 09/14/17 13:48 71 17 124/84 (97) 96 Nasal Cannula 2.0 09/14/17 13:33 69 18 120/85 (97) 97 Nasal Cannula 2.0 09/14/17 13:29 95 Room Air 09/14/17 13:18 68 17 127/85 (99) 96 Nasal Cannula 2.0 09/14/17 13:05 65 18 127/87 (100) Room Air 09/14/17 12:53 67 18 138/68 (91) 96 Room Air 09/14/17 11:57 36.5 65 18 131/65 (87) 97 09/14/17 08:00 94 Room Air 09/14/17 07:53 36.5 63 18 125/69 (87) 94 09/14/17 05:48 64 120/74 (89) 09/14/17 04:00 Room Air 09/14/17 03:11 36.7 65 18 101/62 (75) 97 Room Air 09/14/17 00:01 Room Air 09/13/17 23:46 36.9 65 18 100/67 (78) 97 Room Air 09/13/17 20:00 Room Air 09/13/17 19:51 36.8 80 18 109/71 (84) 95 Room Air 09/13/17 16:46 37.0 75 20 105/67 (80) 95 Room Air 09/13/17 16:00 Room Air (Carmella Pinzon ., PA-C) Physical Exam Notes: General appearance: +Obese. Well-developed, well-nourished, no apparent distress Head: Normocephalic, atraumatic Eyes: Normal inspection, PERRL, EOMI ENT: Normal ENT inspection, hearing grossly normal, pharynx normal Neck: Supple, no JVD, trachea midline Respiratory/Chest: Lungs clear to auscultation, normal breath sounds, no respiratory distress Cardiovascular: Regular rate & rhythm, no gallop, no murmur Abdomen/GI: Normal bowel sounds, non-tender, soft Extremities/Musculoskeletal: Normal inspection, no calf tenderness, no pedal edema Neurological/Psych: +Mildly drowsy following cath. Normal mood/affect, oriented x 3 Skin: Normal color, warm/dry, no rash (Carmella Pinzon ., PA-C) Laboratory Results Last 24 Hours Test 09/13/17 19:54 09/14/17 03:03 09/14/17 06:20 09/14/17 12:16 Activated Partial Thromboplast Time 36.8 SECONDS 58.3 SECONDS Partial Thromboplastin Ratio 1.4 2.2 White Blood Count 9.91 K/uL Red Blood Count 4.84 M/uL Hemoglobin 16.3 g/dL Hematocrit 46.6 % Mean Corpuscular Volume 96.3 fL Mean Corpuscular Hemoglobin 33.7 pg Mean Corpuscular Hemoglobin Concent 35.0 g/dl RDW Standard Deviation 47.7 fL RDW Coefficient of Variation 13.4 % Platelet Count 234 K/uL Mean Platelet Volume 11.2 fL Sodium Level 137 mmol/L Potassium Level 3.7 mmol/L Chloride Level 105 mmol/L Carbon Dioxide Level 27 mmol/L Anion Gap 6.0 mmol/L Blood Urea Nitrogen 13 mg/dl Creatinine 1.02 mg/dl Est Creatinine Clear Calc Drug Dose 124.0 ml/min Estimated GFR () 103.9 Estimated GFR (Non- 89.6 BUN/Creatinine Ratio 12.5 Random Glucose 103 mg/dl Calcium Level 8.6 mg/dl Kaolin Activated Coagulation Time 252 SECONDS (Carmella Pinzon PA-C) Diagnostic Results Procedure Note Procedure Date Sep 14, 2017. Pre-Procedure Diagnosis Non STEMI AUC Score 8 Post-Procedure Diagnosis Severe CAD, Successful PCI, Normal Intracardiac Pressures Procedure(s) Performed Coronary Angiography, Left Heart Cath, Drug Eluting Stent Inventory Management Specialist Kevin Acid Purifier(s) Calvin Estimated Blood Loss 15 Medication(s) Fentanyl, Heparin, Nicardipine, Nitroglycerin, Versed, Lidocaine 1% Summary of Findings Indication: High-risk NSTEMI Access: 6Fr right radial Catheters: [place], JL3.5; EBU 3.5 guide Findings: LM - Angiographically normal LAD - Large caliber vessel, 99% calcified mid LAD; REGINA 1-2 flow in late mid to distal LAD Circumflex - Large caliber vessel, luminal irregularities RCA - Chronic 100% occlusion in proximal vessel. Distal vessel fills vial left to right collaterals from circumflex and proximal septals LVEDP - 10 -- PCI -- Antithrombotic therapy: Heparin, Ticagrelor Procedure: LM cannulated with EBU 3.5 guide Content Administrator 50 wire passed across lesion into distal vessel Mid LAD lesion predilated with 2.5 compliant balloon Prowater wire placed into 2nd diagonal Mid LAD re-dilated with 2.5 balloon. Dilated lesion stented with 3.5 x 38 Cesar MARY 2nd diagonal re-wired with whisper wire 2nd diagonal ostium/stent struts dilated with 2.0 balloon. Stent post-dilated with 4.0 noncompliant balloon IC vasodilators administered for spasm Post procedure REGINA 3 flow, stent well expanded with minimal residual stenosis and no apparent cardiac complications. Arterial Closure: TR Band Summary: 1. Severe 2 vessel coronary artery disease - 100% BLOCK ENGRA[employer] proximal RCA fills via left to right collaterals - 99% mid LAD 2. Normal intracardiac filling pressure 3. Successful PCI of proximal to mid LAD with single MARY (3.5 x 38 Cesar MARY; post-dilated with 4.0 NC) Recommendations: To PCU for continued monitoring Loaded with Ticagrelor prior to label stamper Continue dual-antiplatelet therapy for at least 1 year Continue statin, and ASCVD risk factor modification Consult cardiac Rehab (Carmella Pinzon .FARHANAC) Assessment and Plan 42 y/o male who has been absent from care 10 years and is a current smoker who presents with left sided chest pain and left arm numbness. Acute NSTEMI--stable -Admit to telemetry. No acute events overnight. Pt in SR with HR 70s-80s -Troponin peaked at 33.0, trending down prior to cath -Echo shows EF 40-45%. Severe apical wall hypokinesis, severe septal hypokinesis. Moderate anterior wall hypokinesis. -Heparin drip held for cath -Cardiac cath today shows chronic 100% occlusion in RCA w/collateral vessels. 99% occlusion LAD, PCI and 1 MARY placed -Cardiology consulted, appreciate recs: Spoke with Dr. Coffey. Will repeat limited echo to reassess wall motion tomorrow morning. Continue DAPT, statin, beta freedom, DUKE. Hold off on converting Brilinta to Plavix for now (pt does not currently have insurance, ortiz may be an issue) -Repeat limited echo for WMA tomorrow -Continue ASA, Brilinta 90 mg PO BID, Lipitor 80 mg PO qd, Lopressor 50 mg PO q8h -Start lisinopril 5 mg PO qd per Dr. Brown -NSS at 100 cc/hr Tobacco abuse -Pt encouraged to stop smoking, he is agreeable and motivated Elevated BP w/o diagnosis of HTN--resolved -Clonidine prn HTN DVT prophylaxis -Heparin drip -JESS lyon Code Status -Level I, FULL RESUSCITATION STATUS Dispo -Anticipate d/c in 1 day (Carmella Pinzon ., FARHANAC) I personally interviewed and examined the patient. I agree with history of present illness and physical exam mentioned above, I also performed my own history taking and examination. Past medical history and review of system has been obtained by myself I reviewed all pertinent labs and studies Reviewed current medications I discussed and formulated of the assessment and plan mentioned above. Please refer to the Summary mentioned below. 42 years old man with past medical history of heavy tobacco abuse presented to the hospital with left-sided chest pain status post cardiac catheterization found to have severe two-vessel CAD disease status post PCI of LAD, procedure went uneventful. General Appearance: not in acute distress Eyes: normal Sclerae, extraocular muscle intact ENT: hearing grossly normal Neck: supple Respiratory/Chest: normal air entry bilateral ,no respiratory distress, no accessory muscle use Cardiovascular: regular rate, rhythm, no murmur Abdomen: non tender, soft, no masses Extremities: no edema musculoskeletal: no significant swelling or inflammation in any joint Neurologic/Psychiatric: Awake alert oriented times place and person moves all extremities sensation intact cranial nerves II-12 appear to be intact Skin: normal color, warm/dry, no rash Patricia Pham MD, [facility] hospitalist group (Patricia Márquez MD)
[2017-09-15] VITALS (7 sets, daily range): BP systolic 96–134; BP diastolic 60–62; PULSE 72–92; TEMP 36.8; O2SAT 95–98
[2017-09-15] MEDS: METOPROLOL TARTRATE 50 MG TAB PO SCH ×2 (06:00→14:00)
[2017-09-15 07:33] LABS: HEMATOCRIT 44.7 % (42-52); HEMOGLOBIN 15.4 g/dL (14.0-18.0); MEAN CELL VOLUME 96.3 fL (80-100); MEAN CORPUSCULAR HEMOGLOBIN 33.2 pg (25-34); MEAN CORPUSCULAR HGB CONC 34.5 g/dl (32-36); MEAN PLATELET VOLUME 11.3 fL (7.4-10.4); PLATELET COUNT 230 K/uL (130-400); RED CELL DISTRIBUTION WIDTH CV 13.3 % (11.5-14.5); WHITE BLOOD COUNT 10.38 K/uL (4.8-10.8)
[2017-09-15] MEDS: TICAGRELOR 90 MG TAB PO SCH (08:00)
[2017-09-15] MEDS: ASPIRIN 81 MG ECTAB PO SCH (08:00)
[2017-09-15] MEDS: ATORVASTATIN 40 MG TAB PO SCH (08:01)
[2017-09-15 08:02] LABS: CALCIUM 8.6 mg/dl (8.5-10.1); CREATININE 0.82 mg/dl (0.60-1.40); POTASSIUM 3.8 mmol/L (3.5-5.1)
[2017-09-15] MEDS ORDERED: LISINOPRIL 5 MG TAB PO SCH (09:00)
--- NOTE | 2017-09-15 09:01 | ECHOCARDIOGRAM REPORT ---
*NOTICE TO RECEIVING DEMOCRAT AGENCY This information is strictly Confidential and protected under [place] law. [place] law prohibits you from making any further disclosure of this information unless further disclosure is expressly permitted by the written consent of the person to whom it pertains or is authorized by law. A general authorization for the release of medical or other information is not sufficient for this purpose. Hospital accepts no responsibility if the information is made available to any other person, INCLUDING THE PATIENT. Interpretation Summary * Name: JAMAAL MCCABE Study Date: 09/15/2017 07:00 AM BP: 108/79 mmHg * Patient Location: C.2T\S\S238\S\2 HR: 66 * : 1975 (M/d/yyyy) Gender: Male Height: 72 in * Age: 42 yrs Ethnicity: CA Weight: 260 lb * Ordering Physician: Carmella Pinzon * Referring Physician: Self, Referred * Performed By: Ainsley Huerta RDCS * * Reason For Study: Assess wall motion * BSA: 2.4 m2 * -- Conclusions -- * Compared with 09/12/17 study, septal and anterior wall motion abnormalities slightly improved, apical wall motion markedly improved. LV systolic function improved. * The left ventricle is normal in size. * There is borderline concentric left ventricular hypertrophy. * Left ventricular systolic function is normal. * Ejection Fraction = 60-65%. * Severe hypokinesis septum and distal anterior wall, moderate apical hypokineis. Procedure Details * A two-dimensional transthoracic echocardiogram was performed. Left Ventricle * The left ventricle is normal in size. * There is borderline concentric left ventricular hypertrophy. * Ejection Fraction = 60-65%. * Left ventricular systolic function is normal. * Severe hypokinesis septum and distal anterior wall, moderate apical hypokineis. MMode 2D Measurements and Calculations IVSd 1.0 cm LVIDd 4.5 cm LVIDs 2.9 cm LVPWd 0.95 cm IVS/LVPW 1.1 FS 36.4 % EDV(Teich) 94.6 ml ESV(Teich) 31.9 ml EF(Teich) 66.3 % EDV(cubed) 93.9 ml ESV(cubed) 24.1 ml EF(cubed) 74.3 % LV mass(C)d 152.0 grams LV mass(C)dI 63.8 grams/m\S\2 SV(Teich) 62.7 ml SI(Teich) 26.3 ml/m\S\2 SV(cubed) 69.8 ml SI(cubed) 29.3 ml/m\S\2 LA dimension 3.1 cm LVAd ap4 36.7 cm\S\2 LVLd ap4 8.3 cm EDV(MOD-sp4) 130.9 ml EDV(sp4-el) 137.4 ml LVAs ap4 21.1 cm\S\2 LVLs ap4 6.9 cm ESV(MOD-sp4) 50.7 ml ESV(sp4-el) 54.5 ml EF(MOD-sp4) 61.2 % EF(sp4-el) 60.3 % LVAd ap2 32.2 cm\S\2 LVLd ap2 8.3 cm EDV(MOD-sp2) 103.4 ml EDV(sp2-el) 105.5 ml LVAs ap2 17.8 cm\S\2 LVLs ap2 7.1 cm ESV(MOD-sp2) 37.2 ml ESV(sp2-el) 38.1 ml EF(MOD-sp2) 64.0 % EF(sp2-el) 63.9 % LVLd %diff -0.10 % EDV(MOD-bp) 116.8 ml LVLs %diff 2.4 % ESV(MOD-bp) 43.2 ml EF(MOD-bp) 63.0 % SV(MOD-sp4) 80.1 ml SI(MOD-sp4) 33.6 ml/m\S\2 SV(MOD-sp2) 66.3 ml SI(MOD-sp2) 27.8 ml/m\S\2 SV(MOD-bp) 73.6 ml SI(MOD-bp) 30.9 ml/m\S\2 SV(sp4-el) 82.9 ml SI(sp4-el) 34.8 ml/m\S\2 SV(sp2-el) 67.4 ml SI(sp2-el) 28.3 ml/m\S\2
--- NOTE | 2017-09-15 12:38 | Cardiology Follow-Up ---
Subjective Subjective Date of Service: Sep 15, 2017. Pt evaluation today including: conversation w/ patient, conversation w/ family , physical exam, chart review, lab review, review of studies, conversation w/ learning consultant, review of inpatient medication list Problem List Medical Problems: (1) NSTEMI (non-ST elevated myocardial infarction) Status: Acute Review of Systems Constitutional: No fever, No chills Respiratory: No cough, No sputum Cardiac: No chest pain, No edema Abdomen: No pain, No diarrhea Musculoskeletal: No joint pain, No muscle pain Psychiatric: No depression symptoms, No anxiety Objective Vital Signs Last Vital Signs Documentation Date Time Temp Pulse Resp B/P (MAP) Pulse Ox O2 Delivery O2 Flow Rate FiO2 09/15/17 12:01 36.8 74 18 134/61 (85) 96 09/15/17 12:00 Room Air 09/14/17 14:33 2.0 Physical Exam: General Appearance: no apparent distress Eyes: bilateral eyes normal inspection, bilateral eyes pertinent finding (nml sclera) Neck: supple, no JVD Respiratory/Chest: chest non-tender, lungs clear, normal breath sounds Cardiovascular: regular rate, rhythm, no murmur Abdomen: normal bowel sounds, non tender, soft Extremities: no pedal edema, no calf tenderness Neurologic/Psychiatric: alert, oriented x 3 Skin: warm/dry Assessment and Plan 1. NSTEMI/multivessel CAD -- post PCI with MARY to proximal-mid LAD 2. LV dysfunction/ICM 3. Hypertension 4. Dyslipidemia 5. Ongoing Tobacco Patient feeling well. No recurrent chest pain. Electrically stable. No access site complications. Repeat echo today reviewed -- modest improvement in LV function. From a cardiac standpoint OK for discharge today. Follow-up with Dr. Coffey in 2-3 weeks. Home on : ASA 81mg Brillanta 90mg BID Atorvastatin 80mg Metoprolol 50mg BID Lisinopril 5 mg daily Medications: Current Inpatient Medications Medications (Trade) Dose Ordered Sig/Kt Route Start Time Stop Time Status Last Admin Dose Admin Acetaminophen (Tylenol Tab) 650 mg Q4H PRN PO 09/12/17 10:15 10/12/17 10:14 09/12/17 20:00 650 MG Al Hydrox/Mg Hydrox/Simethicone (Maalox Max Susp) 15 ml Q4H PRN PO 09/12/17 10:15 10/12/17 10:14 Magnesium Hydroxide (Milk Of Magnesia Susp) 30 ml Q12H PRN PO 09/12/17 10:15 10/12/17 10:14 Ondansetron HCl (Zofran Inj) 4 mg Q6H PRN IV 09/12/17 10:15 10/12/17 10:14 Nitroglycerin (Nitrostat Tab) 0.4 mg UD PRN SL 09/12/17 10:15 10/12/17 10:14 Morphine Sulfate (MoRPHine SULFATE INJ) 2 mg Q30M PRN IV 09/12/17 10:15 09/26/17 10:14 Aspirin (Ecotrin Tab) 81 mg QAM PO 09/13/17 09:00 10/13/17 08:59 09/15/17 08:00 81 MG Polyethylene (Miralax Powder Packet) 17 gm DAILY PRN PO 09/12/17 10:15 10/12/17 10:14 Ticagrelor (Brilinta Tab) 90 mg BID PO 09/13/17 07:00 10/05/17 06:59 09/15/17 08:00 90 MG Metoprolol Tartrate (Lopressor Tab) 50 mg Q8 PO 09/12/17 22:00 10/12/17 21:59 09/15/17 06:00 50 MG Atorvastatin Calcium (Lipitor Tab) 80 mg QAM PO 09/13/17 09:00 10/13/17 08:59 09/15/17 08:01 80 MG Clonidine HCl (Catapres Tab) 0.1 mg Q8 PRN PO 09/12/17 16:45 10/12/17 16:44 Lisinopril (Zestril Tab) 5 mg QAM PO 09/15/17 09:00 10/15/17 08:59 09/15/17 08:01 5 MG Lab Results: 09/15/17 07:10 09/15/17 07:10 Test 09/15/17 07:10 Red Blood Count 4.64 M/uL (4.7-6.1) Mean Corpuscular Volume 96.3 fL (80-100) Mean Corpuscular Hemoglobin 33.2 pg (25-34) Mean Corpuscular Hemoglobin Concent 34.5 g/dl (32-36) RDW Standard Deviation 47.0 fL (36.4-46.3) RDW Coefficient of Variation 13.3 % (11.5-14.5) Mean Platelet Volume 11.3 fL (7.4-10.4) Activated Partial Thromboplast Time 27.0 SECONDS (21.0-31.0) Partial Thromboplastin Ratio 1.0 Anion Gap 8.0 mmol/L (3-11) Est Creatinine Clear Calc Drug Dose 154.7 ml/min Estimated GFR () 125.5 Estimated GFR (Non- 108.3 BUN/Creatinine Ratio 17.2 (10-20) Calcium Level 8.6 mg/dl (8.5-10.1)
[2017-09-15] MEDS ORDERED: METO50TA16 PO (13:19)
[2017-09-15] MEDS ORDERED: ATOR80TA PO (13:19)
[2017-09-15] MEDS ORDERED: BRL90 PO (13:19)
[2017-09-15] MEDS ORDERED: LSN5 PO (13:19)
[2017-09-15] MEDS ORDERED: ASPI-320 PO (13:19)
--- NOTE | 2017-09-15 13:41 | Discharge Instructions ---
Discharge Instructions Date of Service Sep 15, 2017. Admission Reason for Admission: Non-St Elevation Myocardial Infarction,Tabacoo Use Discharge Discharge Diagnosis / Problem: Non-ST Elevation Myocardial Infarction Discharge Goals Goal(s): Decrease discomfort, Improve function, Improve disease control, Learn about illness, Diagnostic testing, Therapeutic intervention, Prevent Disease Progression Activity Recommendations Activity Limitations: per Instructions/Follow-up section Lifting Limitations: until after follow-up appointment (No heavy lifting until cardiac rehab) Exercise/Sports Limitations: until after follow-up appointment May Resume Sexual Activity: after follow-up appointment Shower/Bathe: no limitations . Instructions / Follow-Up Instructions / Follow-Up You were admitted to the hospital with chest pain and shortness of breath. You were found to have a heart attack. You underwent a cardiac catheterization which showed blockages in two coronary arteries. One of the arteries has been blocked for a long time and had already developed new collateral vessels to go around the blockage. A stent was placed in the other blockage. Due to your heart attack, it is very important that you stop smoking/using any tobacco products completely. This week, please rest and take it easy. Per cardiology, you may return to work on Thursday, but please only work as tolerated. Avoid heavy lifting until you follow up with cardiac rehab. Medications: *Please take aspirin 81 mg daily. This is also called baby aspirin. *Please take Brilinta 90 mg twice a day. This is an antiplatelet medication that you need to take in addition to the aspirin for at least one year. You have been provided samples of this medication so it has NOT been sent to your pharmacy. *Please take metoprolol tartrate (Lopressor) 50 mg twice a day. This is for blood pressure and your heart. *Please take lisinopril 5 mg daily. This is for blood pressure and your heart. *Please take atorvastatin (Lipitor) 80 mg daily. This is for your cholesterol. Follow up: *You have been scheduled to follow up with a family practice doctor to establish as your primary car provider. *You will be scheduled to follow up with cardiology in 2-3 weeks. They will call you. You may require a special genetic test to see if you are a candidate for a different, cheaper antiplatelet medication. Dr. Coffey can help set that up with you. Please seek medical attention if you experience fevers, chills, sweats, dizziness/lightheadedness, loss of consciousness, chest pain, shortness of breath, nausea, vomiting, numbness or tingling. ACTIVITY RECOMMENDATIONS: Excess manipulation of the wrist should be avoided for the next 24-48 hours. * No lifting over 2 pounds (approximately a 1/2 gallon of milk) with the utilized arm for 24 hours. * No strenuous activity such as bowling or tennis for 3 days. * Keep the site of the procedure covered with a bandage for 24 hours. *You may shower the day after the procedure. Do not take a tub bath or submerge the puncture site in water for the next 3 days. *Do not operate any motorized equipment for 3 days. SPECIAL CARE INSTRUCTIONS: The site may be slightly bruised and sore following your procedure. Should any of the following occur, contact the Dr. who performed your procedure. 1. Redness/inflammation, swelling, chills, or fever, or colored drainage at procedure site within 3-7 days after your procedure. 2. Coldness, discoloration, ongoing numbness, severe pain, or swelling. Expect mild tingling of hand and tenderness at the puncture site for up to three days. If this persists beyond three days, or other symptoms develop, notify the Dr. who performed your procedure. BLEEDING: If the procedure site on your wrist begins to bleed, do not panic 1. Place 1 or 2 fingers firmly just slightly above the insertion site to stop the bleeding. You may be able to feel your pulse as you hold pressure. 2. Lift your finger after 5 minutes to see if the bleeding has stopped. 3. Once the bleeding has stopped, gently wipe the wrist area clean with a bandage. * If the bleeding from your wrist does not stop after 10 minutes, or if there is a large amount of bleeding or spurting, call 911 (do not drive yourself to the hospital). SKIN IRRITATION: * You may experience some redness and/or swelling in the area where radiation was administered. If any skin irritation occurs, please contact your family physician. Activation of Emergency Medical System: Call 911, immediately, if you experience any of the following: Warning Signs and Symptoms of a Heart Attack: * Chest pain that is not relieved by medication * Shortness of breath Otherwise, call your doctor immediately if you have: * Lightheadedness, dizziness, or fainting * Feeling of irregular heartbeat or fast pulse Home Care: * Take your medications exactly as directed. Don't skip doses. * Remember that recovery after a heart attack takes time. Plan to rest for at lease 4-8 weeks while you recover. Then return to normal activity when your doctor says it's okay. * Ask your doctor about joining a heart rehabilitation program. * Tell your doctor if you are feeling depressed. Feelings of sadness are common after a heart attack, but it is important that you speak to someone if you are feeling overwhelmed by these feelings. * If you are having chest pain, call 911 for an ambulance. Do NOT drive yourself to the hospital. * Ask your family members to learn CPR. * Learn to take your own blood pressure and pulse. Keep a record of your results. Ask your doctor when you should seek emergency medical attention. He or she will tell you which blood pressure reading is dangerous. Lifestyle Changes: * Maintain a healthy weight. Get help to lose any extra pounds. * Cut back on salt. 1. Limit canned, dried, packaged, and fast foods. 2. Don't add salt to your food. 3. Season foods with herbs instead of salt when you cook. * Break the smoking habit. Enroll in a stop-smoking program to improve your chances of success. * Limit fatty foods. * Check your lipid levels regularly. (Your doctor can show you how to do this. ) * Build up your activity according to your doctor's recommendation. * Ask your doctor when it's okay to resume sexual activity. * Tell your doctor about any erectile dysfunction (ED) medication you are taking. Some ED medications are not safe if you take certain heart medications. * Try to manage stress. Current Hospital Diet Patient's current hospital diet: AHA Diet (Heart Healthy) Discharge Diet Recommended Diet: AHA Diet (Heart Healthy) Procedures Procedures Performed: Cardiac catheterization Pending Studies Studies pending at discharge: no Laboratory Results Lipid Panel Test 09/13/17 03:38 Range/Units Triglycerides Level 83 0-150 mg/dl Cholesterol Level 150 0-200 mg/dl HDL Cholesterol 36 mg/dl Cholesterol/HDL Ratio 4.2 LDL Cholesterol, Calculated 97 mg/dl Medical Emergencies . Who to Call and When: Medical Emergencies: If at any time you feel your situation is an emergency, please call 911 immediately. . Non-Emergent Contact Non-Emergency issues call your: Primary Care Provider, Second Worker Call Non-Emergent contact if: you have a fever, your pain is not controlled, your pain is worsening, your pain is unusual for you, your pain is concerning you, wound has increased drainage, wound has increased redness, wound has increased pain, you have any medication questions . Past History Medical & Surgical History: (1) Non-ST elevation (NSTEMI) myocardial infarction . "Provider Documentation" section prepared by Carmella Pinzon. .
--- NOTE | 2017-09-15 13:52 | Discharge Summary ---
Discharge Summary Date of Service Sep 15, 2017. Discharge Summary Admission Date: Sep 12, 2017 at 10:13 Discharge Date: Sep 15, 2017 Discharge Disposition: Home Principal Diagnosis: NSTEMI Problems/Secondary Diagnoses: Elevated blood pressure, tobacco abuse Procedures: Cardiac cath: Procedure Note Procedure Date Sep 14, 2017. Pre-Procedure Diagnosis Non STEMI AUC Score 8 Post-Procedure Diagnosis Severe CAD, Successful PCI, Normal Intracardiac Pressures Procedure(s) Performed Coronary Angiography, Left Heart Cath, Drug Eluting Stent Medical Record Coder Kevin Client Account Assistant(s) Calvin Estimated Blood Loss 15 Medication(s) Fentanyl, Heparin, Nicardipine, Nitroglycerin, Versed, Lidocaine 1% Summary of Findings Indication: High-risk NSTEMI Access: 6Fr right radial Catheters: [place], JL3.5; EBU 3.5 guide Findings: LM - Angiographically normal LAD - Large caliber vessel, 99% calcified mid LAD; REGINA 1-2 flow in late mid to distal LAD Circumflex - Large caliber vessel, luminal irregularities RCA - Chronic 100% occlusion in proximal vessel. Distal vessel fills vial left to right collaterals from circumflex and proximal septals LVEDP - 10 -- PCI -- Antithrombotic therapy: Heparin, Ticagrelor Procedure: LM cannulated with EBU 3.5 guide Returned Telephone Equipment Appraiser 50 wire passed across lesion into distal vessel Mid LAD lesion predilated with 2.5 compliant balloon Prowater wire placed into 2nd diagonal Mid LAD re-dilated with 2.5 balloon. Dilated lesion stented with 3.5 x 38 [place] MARY 2nd diagonal re-wired with whisper wire 2nd diagonal ostium/stent struts dilated with 2.0 balloon. Stent post-dilated with 4.0 noncompliant balloon IC vasodilators administered for spasm Post procedure REGINA 3 flow, stent well expanded with minimal residual stenosis and no apparent cardiac complications. Arterial Closure: TR Band Summary: 1. Severe 2 vessel coronary artery disease - 100% DEVELOPMENT TECHNICAL LEAD proximal RCA fills via left to right collaterals - 99% mid LAD 2. Normal intracardiac filling pressure 3. 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 Continue dual-antiplatelet therapy for at least 1 year Continue statin, and ASCVD risk factor modification Consult cardiac Rehab Repeat limited echo: Interpretation Summary * Name: JAMAAL MCCABE Study Date: 09/15/2017 07:00 AM BP: 108/79 mmHg * Patient Location: .2T\S\S238\S\2 HR: 66 * : 1975 (M/d/yyyy) Gender: Male Height: 72 in * Age: 42 yrs Ethnicity: CA Weight: 260 lb * Ordering Physician: Carmella Pinzon * Referring Physician: Self, Referred * Performed By: Ainsley Huerta RDCS * * Reason For Study: Assess wall motion * BSA: 2.4 m2 * -- Conclusions -- * Compared with 09/12/17 study, septal and anterior wall motion abnormalities slightly improved, apical wall motion markedly improved. LV systolic function improved. * The left ventricle is normal in size. * There is borderline concentric left ventricular hypertrophy. * Left ventricular systolic function is normal. * Ejection Fraction = 60-65%. * Severe hypokinesis septum and distal anterior wall, moderate apical hypokineis. Procedure Details * A two-dimensional transthoracic echocardiogram was performed. Left Ventricle * The left ventricle is normal in size. * There is borderline concentric left ventricular hypertrophy. * Ejection Fraction = 60-65%. * Left ventricular systolic function is normal. * Severe hypokinesis septum and distal anterior wall, moderate apical hypokineis. Consultations: Cardiology Medication Reconciliation New Medications: Aspirin (Aspirin EC Low Dose) 81 Mg Ectab 81 MG PO QAM for 30 Days, #30 TABS Atorvastatin (Lipitor) 80 Mg Tab 1 TAB PO DAILY for 30 Days, #30 TAB Lisinopril (Lisinopril) 5 Mg Tab 5 MG PO QAM for 30 Days, #30 TAB Metoprolol Tartrate (Lopressor) (Lopressor) 50 Mg Tab 50 MG PO BID for 30 Days, #60 TAB Ticagrelor (Brilinta) 90 Mg Tab 90 MG PO BID for 30 Days, #60 TAB Discontinued Medications: [Cbd Oil] () Unknown Dose NEB DAILY Discharge Exam The patient reports feeling well. He does report feeling fatigued after walking around in the hallway for a bit but denies any further chest pain. He did have some minimal dyspnea on exertion after walking a while. The patient denies fevers, chills, sweats, chest pain, palpitations, claudication, cough, wheezing, nausea, vomiting, abdominal pain, dysuria, hematuria, urinary retention, paralysis, weakness, numbness and tingling. Constitutional: +Fatigue. No fever, No chills, No sweats Eyes: No worsening of vision, No eye pain, No diplopia ENT: No hearing loss, No nasal symptoms, No trouble swallowing Respiratory: +VAN. No cough, No wheezing, No shortness of breath at rest Cardiovascular: No chest pain, No claudication, No palpitations Abdomen: No pain, No nausea, No vomiting Musculoskeletal: No joint pain, No muscle pain, No swelling Genitourinary - Male: No dysuria, No urinary retention, No hematuria Neurologic: No paralysis, No weakness, No numbness/tingling Integumentary: No rash, No itch, No color change General appearance: +Obese. Well-developed, well-nourished, no apparent distress Head: Normocephalic, atraumatic Eyes: Normal inspection, PERRL, EOMI ENT: Normal ENT inspection, hearing grossly normal, pharynx normal Neck: Supple, no JVD, trachea midline Respiratory/Chest: Lungs clear to auscultation, normal breath sounds, no respiratory distress Cardiovascular: Regular rate & rhythm, no gallop, no murmur Abdomen/GI: Normal bowel sounds, non-tender, soft Extremities/Musculoskeletal: Normal inspection, no calf tenderness, no pedal edema Neurological/Psych: Alert, normal mood/affect, oriented x 3 Skin: Normal color, warm/dry, no rash Hospital Course 42 y/o male who has been absent from care 10 years and is a current smoker who presents with left sided chest pain and left arm numbness. Acute NSTEMI--stable -Admit to telemetry. No acute events overnight. Pt in SR with HR 60s-70s -Troponin peaked at 33.0, trending down prior to cath -Echo prior to cath shows EF 40-45%. Severe apical wall hypokinesis, severe septal hypokinesis. Moderate anterior wall hypokinesis. -Cardiac cath today shows chronic 100% occlusion in RCA w/collateral vessels. 99% occlusion LAD, PCI and 1 MARY placed -Cardiology consulted, appreciate recs: Spoke with Dr. Coffey. Will follow up in 2-3 weeks. Could benefit from genetic testing to see if Plavix would be a good fit as this would be more affordable. Continue Brilinta for now, samples provided. Continue ASA, Brilinta, atorvastatin 80 mg, metoprolol 50 mg BID, lisinopril 5 mg. -Repeat limited echo shows improvement of EF, now 60-65%. Apical wall motion markedly improved. Septal and anterior WMA slightly improved. -Continue ASA, Brilinta 90 mg PO BID, Lipitor 80 mg PO qd, Lopressor 50 mg PO BID, lisinopril 5 mg PO qd Tobacco abuse -Pt encouraged to stop smoking, he is agreeable and motivated. Does not want anything else to help him quit and has not received any nicotine while admitted Elevated BP w/o diagnosis of HTN--resolved -Clonidine prn HTN -Lisinopril and metoprolol as above DVT prophylaxis -Heparin drip -JESS lyon Code Status -Level I, FULL RESUSCITATION STATUS Dispo -Establish care with Dr. Eduardo -F/u cardiology in 2-[address] Coffey. May have genetic testing once he has insurance to see if he would benefit from Plavix or needs to stay on Brilinta -Cardiac rehab consulted I personally interviewed and examined the patient. I agree with history of present illness and physical exam mentioned above, I also performed my own history taking and examination. Past medical history and review of system has been obtained by myself I reviewed all pertinent labs and studies Reviewed current medications I discussed and formulated of the assessment and plan mentioned above. Please refer to the Summary mentioned below. 42 years old man with past medical history of heavy tobacco abuse presented to the hospital with left-sided chest pain status post cardiac catheterization found to have severe two-vessel CAD disease status post PCI of LAD, procedure went uneventful. I saw the patient with Dr. Brown who cleared him for discharge Explained to patient the importance of cardiac rehabilitation and the importance of being on Lipitor and antiplatelets Patient understands the plan and will be discharged home General Appearance: not in acute distress Eyes: normal Sclerae, extraocular muscle intact ENT: hearing grossly normal Neck: supple Respiratory/Chest: normal air entry bilateral ,no respiratory distress, no accessory muscle use Cardiovascular: regular rate, rhythm, no murmur Abdomen: non tender, soft, no masses Extremities: no edema musculoskeletal: no significant swelling or inflammation in any joint Neurologic/Psychiatric: Awake alert oriented times place and person moves all extremities sensation intact cranial nerves II-12 appear to be intact Skin: normal color, warm/dry, no rash Patricia Pham MD, [facility] Total Time Spent: Greater than 30 minutes This includes examination of the patient, discharge planning, medication reconciliation, and communication with other providers. Discharge Instructions Please refer to the electronic Patient Visit Report (Discharge Instructions) for additional information. Additional Copies To Scott Eduardo D.O.
== END 2017-09-15 14:12 | disposition home or self-care (01) | DRG 229 ==
LOC: C.EDB 08:55 → C.2T 10:13 → ENRESERV 10:21
PROVIDERS: ADMIT Internal Medicine; ATTEND Internal Medicine
PROC: 4A023N7 Measurement of Cardiac Sampling and Pressure, Left Heart, Percutaneous Approach (ICD-10-PCS; principal; 2017-09-14 10:23)
PROC: 027004Z Dilation of Coronary Artery, One Artery with Drug-eluting Intraluminal Device, Open Approach (ICD-10-PCS; principal; 2017-09-14 10:23)
PROC: B2100ZZ Fluoroscopy of Single Coronary Artery using High Osmolar Contrast (ICD-10-PCS; principal; 2017-09-14 10:23)
DX: I21.4 Non-ST elevation (NSTEMI) myocardial infarction (principal); J45.909 Unspecified asthma, uncomplicated; F17.200 Nicotine dependence, unspecified, uncomplicated; Z82.49 Family history of ischemic heart disease and other diseases of the circulatory system; Z88.5 Allergy status to narcotic agent; Z80.7 Family history of other malignant neoplasms of lymphoid, hematopoietic and related tissues; I25.10 Atherosclerotic heart disease of native coronary artery without angina pectoris

== ENCOUNTER 2017-10-28 23:46 | Inpatient (IN) | payer OTHER ==
[~2017-10-28] VITALS: Ht 185.4 cm; Wt 116.4 kg
[~2017-10-28 23:46] MED LIST: ASPI-320 PO; ATOR80TA PO; BRL90 PO; LSN5 PO; METO50TA16 PO
[2017-10-29] VITALS (9 sets, daily range): BP systolic 136–144; BP diastolic 83–92; PULSE 64–93; TEMP 36.6–37; O2SAT 96–99; Ht 185.4 cm; Wt 116.4 kg
[2017-10-29] MEDS ORDERED: SODIUM CHLORIDE 0.9% 1000ML 1,000 ML IV STA (00:22)
--- NOTE | 2017-10-29 00:23 | EMERGENCY ROOM VISIT NOTE ---
History Report prepared by Sherri: Sonya Pickard Under the Supervision of: Dr. Mica Elias D.O. First contact with patient: 23:55 Chief Complaint: ABDOMINAL PAIN Stated Complaint: ABD PAIN History of Present Illness The patient is a 42 year old male who presents to the Emergency Room with complaints of persistent abdominal pain since 1729 yesterday. He notes that he has been resting in bed since 1899 yesterday. He has tried different positions to help alleviate the pain, though no relief. He has tried going to the bathroom , though no relief. He notes the pain is mostly in his RLQ, though he has had pain in his left side. He reports abdominal pain similar to previous symptoms six weeks ago. He reports a history of a ME that he had at that time as well. He notes the pain just went away after a few hours at that time, though he state this pain is lasting longer. He has not been eating regularly due to work. 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 He notes that he has not eaten much at all today. He denies any diarrhea or constipation. He denies any change in his urine. He denies any back pain. He denies any abdominal surgeries. Per , the patient had lumps on his stomach about a week or two ago. He has a history of hernias. He notes that he has felt bloated for three weeks. He has a family history of colon cancer and diabetes. He denies any personal history of GI problems. He reports a history of two cardiac stents. Source of History: patient Onset: 1729 yesterday Position: abdomen Timing: other (persistent) Associated Symptoms: No back pain, No diarrhea, No urinary symptoms Note: Denies any constipation. Notes bloating. Review of Systems See HPI for pertinent positives & negatives. A total of 10 systems reviewed and were otherwise negative. Past Medical & Surgical Medical Problems: (1) Asthma (2) Exertional dyspnea (3) Non-ST elevation (NSTEMI) myocardial infarction (4) Tobacco abuse Family History Heart disease Hypertension Social History Smoking Status: Never Smoker Alcohol Use: occasionally Drug Use: none Marital Status: single Housing Status: lives with family Occupation Status: employed Current/Historical Medications Scheduled Aspirin (Aspirin Low Dose), 81 MG PO DAILY Atorvastatin (Lipitor), 80 MG PO DAILY Lisinopril (Zestril), 5 MG PO DAILY Metoprolol Tartrate (Lopressor) (Lopressor), 50 MG PO BID Ticagrelor (Brilinta), 90 MG PO BID Allergies Coded Allergies: Opium (Unverified Adverse Reaction, Intermediate, NAUSEA, 10/29/17) Physical Exam Vital Signs Date Time Temp Pulse Resp B/P (MAP) Pulse Ox O2 Delivery O2 Flow Rate FiO2 10/29/17 06:02 36.7 74 18 131/83 99 Room Air 10/29/17 04:10 71 18 117/60 99 Room Air 10/29/17 01:47 90 18 152/90 97 Room Air 10/28/17 23:49 36.8 92 18 149/104 94 Room Air Physical Exam GENERAL: alert, well appearing, well nourished, no distress, non-toxic EYE EXAM: normal conjunctiva, PERRL and EOM's grossly intact OROPHARYNX: no exudate, no erythema, lips, buccal mucosa, and tongue normal and mucous membranes are dry. NECK: supple, no nuchal rigidity, no adenopathy, non-tender LUNGS: Clear to auscultation. Normal chest wall mechanics HEART: no murmurs, S1 normal and S2 normal ABDOMEN: abdomen soft, normo-active bowel sounds, no masses, no guarding. RLQ tenderness, positive rebound tenderness, pain at McBurney's point, pain right mid abdomen laterally. BACK: Back is symmetrical on inspection and there is no deformity, no midline tenderness, no CVA tenderness. SKIN: no rashes and no bruising UPPER EXTREMITIES: upper extremities are grossly normal. LOWER EXTREMITIES: No pitting edema. NEURO EXAM: Normal sensorium, cranial nerves II-XII grossly intact, normal speech, no gross weakness of arms, no gross weakness of legs. Medical Decision & Procedures ER Provider Diagnostic Interpretation: Radiology results have been interpreted by the radiologist and reviewed by me. CT ABDOMEN & PELVIS With Contrast: The appendix is dilated measuring up to 10 mm id diameter with periappendiceal inflammatory change. This finding is most consistent with acute appendicitis. No abscess formation or bowel perforation noted. The liver, gallbladder, pancreas, spleen, adrenal glands and kidneys are unremarkable. Scattered diverticulosis in the sigmoid colon. Radiologist: Frantz Thomson MD Study ready at 01:46 and initial results transmitted at 02:38 Laboratory Results 10/29/17 00:32 Red Blood Count 4.53, Mean Corpuscular Volume 94.0, Mean Corpuscular Hemoglobin 33.6, Mean Corpuscular Hemoglobin Concent 35.7, Mean Platelet Volume 10.6, Neutrophils (%) (Auto) 89.8, Lymphocytes (%) (Auto) 5.0, Monocytes (%) (Auto) 4.6, Eosinophils (%) (Auto) 0.3, Basophils (%) (Auto) 0.1, Neutrophils # (Auto) 16.77, Lymphocytes # (Auto) 0.93, Monocytes # (Auto) 0.86, Eosinophils # (Auto) 0.05, Basophils # (Auto) 0.02 10/29/17 00:32 Test 10/29/17 00:32 10/29/17 02:20 White Blood Count 18.67 K/uL (4.8-10.8) Red Blood Count 4.53 M/uL (4.7-6.1) Hemoglobin 15.2 g/dL (14.0-18.0) Hematocrit 42.6 % (42-52) Mean Corpuscular Volume 94.0 fL (80-100) Mean Corpuscular Hemoglobin 33.6 pg (25-34) Mean Corpuscular Hemoglobin Concent 35.7 g/dl (32-36) Platelet Count 271 K/uL (130-400) Mean Platelet Volume 10.6 fL (7.4-10.4) Neutrophils (%) (Auto) 89.8 % Lymphocytes (%) (Auto) 5.0 % Monocytes (%) (Auto) 4.6 % Eosinophils (%) (Auto) 0.3 % Basophils (%) (Auto) 0.1 % Neutrophils # (Auto) 16.77 K/uL (1.4-6.5) Lymphocytes # (Auto) 0.93 K/uL (1.2-3.4) Monocytes # (Auto) 0.86 K/uL (0.11-0.59) Eosinophils # (Auto) 0.05 K/uL (0-0.5) Basophils # (Auto) 0.02 K/uL (0-0.2) RDW Standard Deviation 44.7 fL (36.4-46.3) RDW Coefficient of Variation 13.0 % (11.5-14.5) Immature Granulocyte % (Auto) 0.2 % Immature Granulocyte # (Auto) 0.04 K/uL (0.00-0.02) Prothrombin Time 10.7 SECONDS (9.0-12.0) Prothromb Time International Ratio 1.0 (0.9-1.1) Anion Gap 9.0 mmol/L (3-11) Est Creatinine Clear Calc Drug Dose 126.7 ml/min Estimated GFR () 103.9 Estimated GFR (Non- 89.6 BUN/Creatinine Ratio 15.9 (10-20) Calcium Level 8.8 mg/dl (8.5-10.1) Total Bilirubin 1.9 mg/dl (0.2-1) Aspartate Amino Transf (AST/SGOT) 18 U/L (15-37) Alanine Aminotransferase (ALT/SGPT) 30 U/L (12-78) Alkaline Phosphatase 70 U/L (45-117) Total Protein 7.4 gm/dl (6.4-8.2) Albumin 4.0 gm/dl (3.4-5.0) Globulin 3.4 gm/dl (2.5-4.0) Albumin/Globulin Ratio 1.2 (0.9-2) Lipase 646 U/L (73-393) Urine Color YELLOW Urine Appearance CLEAR (CLEAR) Urine pH 5.0 (4.5-7.5) Urine Specific [place] > 1.045 (1.000-1.030) Urine Protein NEG (NEG) Urine Glucose (UA) NEG (NEG) Urine Ketones NEG (NEG) Urine Occult Blood NEG (NEG) Urine Nitrite NEG (NEG) Urine Bilirubin NEG (NEG) Urine Urobilinogen NEG (NEG) Urine Leukocyte Esterase NEG (NEG) Laboratory results per my review. Medications Administered Medications (Trade) Dose Ordered Sig/Kt Route Start Time Stop Time Status Last Admin Dose Admin Sodium Chloride 1,000 ml @ 250 mls/hr Q4H STAT IV 10/29/17 00:22 10/29/17 04:21 DC 10/29/17 00:35 250 MLS/HR ED Course 0007: The patient was evaluated in room B10. A complete history and physical exam was performed. 0022: Ordered Sodium Chloride 1,000 ml @ 250 mls/hr IV 0200: I reassessed the patient at this time. He is still having pain. He denies any nausea. Pt offered pain medication and he declined. 0241: I spoke with STAT ANTONIETTA. He states the patient has acute appendicitis. 0246: I spoke with Dr. Aj, general surgeon. We discussed the patient's case. The patient will be further evaluated by him in the morning in the ER. 0251: I reassessed the patient at this time. He declined any pain medication. I discussed the results and treatment plan with the patient. I answered all pertaining questions that he had. He expressed understanding and verbalized agreement. The patient will be further evaluated. 0600: Dr. Aj is here seeing the patient at bedside. Medical Decision Differential diagnoses includes but is not limited to gastritis, peptic ulcer disease, GERD, gallbladder disease, pancreatitis, small bowel obstruction, acute coronary syndrome, pericarditis, ischemic bowel, irritable bowel disease, irritable bowel syndrome, appendicitis, diverticulitis, malignancy, hernia, urinary tract infection, torsion, perforation, trauma, infectious. Pt here with story concerning for appendicitis as well as other pathology. Patient's blood work revealed a leukocytosis and mild elevated lipase. CAT scan consistent with acute appendicitis. Patient hemodynamically stable throughout. Case discussed with general surgery, and they did not have any other orders, and asked that the patient remain in the emergency room until he can see him here in the morning. Patient kept on maintenance IV fluids, and it multiple times offered pain and nausea medication which the patient declined. Pt with no symptoms concerning for additional cardiac event given this time despite recent NSTEMI and stent placement. Pt's recent hx was discussed with surgery also. Medication Reconcilliation Current Medication List: was personally reviewed by me Blood Pressure Screening Patient's blood pressure: Elevated blood pressure monitored by surgeon Consults Time Called: 024 Consulting Physician: Dr. Aj, general surgeon Returned Call: [address] Aj, general surgeon. We discussed the patient's case. The patient will be further evaluated. Impression Primary Impression: Appendicitis Additional Impressions: Elevated lipase Tobacco abuse Scribe Attestation The scribe's documentation has been prepared under my direction and personally reviewed by me in its entirety. I confirm that the note above accurately reflects all work, treatment, procedures, and medical decision making performed by me. Departure Information Dispostion Being Evaluated By Surgeon Referrals Scott Eduardo D.OCecilia (PCP) Patient Instructions My [facility] Health Problem Qualifiers Primary Impression: Appendicitis Appendicitis type: acute appendicitis Acute appendicitis type: with localized peritonitis Qualified Codes: K35.3 - Acute appendicitis with localized peritonitis
[2017-10-29] MEDS ORDERED: ASPI1TAB48 PO (00:35)
[2017-10-29] MEDS ORDERED: ATOR-26 PO (00:36)
[2017-10-29] MEDS ORDERED: LISI-729 PO (00:36)
[2017-10-29] MEDS ORDERED: METO50TA16 PO (00:37)
[2017-10-29] MEDS ORDERED: TICA1TAB PO (00:38)
[2017-10-29 00:46] LABS: BASO % 0.1 %; BASO ABS # 0.02 K/uL (0-0.2); EOS % 0.3 %; EOS ABS # 0.05 K/uL (0-0.5); HEMATOCRIT 42.6 % (42-52); HEMOGLOBIN 15.2 g/dL (14.0-18.0); IG# 0.04 K/uL (0.00-0.02); LYMPH ABS # 0.93 K/uL (1.2-3.4); MEAN CORPUSCULAR HEMOGLOBIN 33.6 pg (25-34); MEAN CORPUSCULAR HGB CONC 35.7 g/dl (32-36); MEAN PLATELET VOLUME 10.6 fL (7.4-10.4); MONO % 4.6 %; MONO ABS # 0.86 K/uL (0.11-0.59); NEUT % 89.8 %; NEUT ABS # 16.77 K/uL (1.4-6.5); PLATELET COUNT 271 K/uL (130-400); RED CELL DISTRIBUTION WIDTH SD 44.7 fL (36.4-46.3); WHITE BLOOD COUNT 18.67 K/uL (4.8-10.8)
[2017-10-29 01:28] LABS: CALCIUM 8.8 mg/dl (8.5-10.1); CREATININE 1.02 mg/dl (0.60-1.40); POTASSIUM 3.8 mmol/L (3.5-5.1); TOTAL PROTEIN 7.4 gm/dl (6.4-8.2)
[2017-10-29] MEDS ORDERED: OPTIRAY 320 IV PRN (01:45)
--- NOTE | 2017-10-29 06:11 | History and Physical ---
History & Physical Date & Time of Service: October 29, 2017 at 06:01 Chief Complaint: Abd Pain Primary Care Physician: Scott Eduardo D.O. History of Present Illness Source: patient, hospital records, other 42 y/o M Hx CAD - NSTEMI 09/23 - PCI of proximal to mid LAD with single MARY. The pt presents c/o RLQ abdominal pain. CT confirms appendicitis. He was evaluated by the surgical service. Considering his recent AK we are asked to evaluate the pt preop and place him on the medical service. The pt states that since his AK and cath, he as been SOB with exertion. He becomes SOB mowing his lawn or climbing a flight of stairs. He denies any recent CP. He has not had fevers, nausea, vomiting or diarrhea. Past Medical/Surgical History 1) Obesity 2) CAD - NSTEMI - MARY to LAD 09/23/17 Family History Heart disease Hypertension Social History Quit smoking when he had the AK 09/23 Smoking Status: Former Smoker Drug Use: none Marital Status: single Occupational Status: employed Allergies Coded Allergies: Opium (Unverified Adverse Reaction, Intermediate, NAUSEA, 10/29/17) Home Medications Scheduled Aspirin (Aspirin Low Dose), 81 MG PO DAILY Atorvastatin (Lipitor), 80 MG PO DAILY Lisinopril (Zestril), 5 MG PO DAILY Metoprolol Tartrate (Lopressor) (Lopressor), 50 MG PO BID Ticagrelor (Brilinta), 90 MG PO BID Review of Systems Constitutional: No fever, No chills, No sweats Eyes: No worsening of vision ENT: No hearing loss, No unusual epistaxis, No nasal symptoms Respiratory: + dyspnea on exertion, No cough, No sputum, No wheezing Cardiovascular: No chest pain, No orthopnea, No PND Abdomen: + pain, No nausea, No vomiting Musculoskeletal: No joint pain Genitourinary - Male: No hematuria, No dysuria Neurologic: No memory loss, No paralysis, No weakness Psychiatric: No depression symptoms Endocrine: No fatigue Hematologic / Lymphatic: No abnormal bleeding/bruising Integumentary: No rash Allergic / Immunologic: No environmental allergies Physical Exam Vital Signs Date Time Temp Pulse Resp B/P (MAP) Pulse Ox O2 Delivery O2 Flow Rate FiO2 10/29/17 04:10 71 18 117/60 99 Room Air 10/29/17 01:47 90 18 152/90 97 Room Air 10/28/17 23:49 36.8 92 18 149/104 94 Room Air General Appearance: WD/WN, no apparent distress Head: normocephalic Eyes: normal inspection ENT: normal ENT inspection, pharynx normal Neck: supple, no JVD Respiratory/Chest: chest non-tender Cardiovascular: regular rate, rhythm, no edema, no gallop Abdomen/GI: normal bowel sounds, + pertinent finding (LOwer quadrant mildly tender) Extremities/Musculoskelatal: normal inspection, no calf tenderness Neurologic/Psych: completion manager II-XII nml as tested, no motor/sensory deficits, alert, oriented x 3 Skin: normal color Diagnostics Laboratory Results Results Past 24 Hours Test 10/29/17 00:32 10/29/17 02:20 Range/Units White Blood Count 18.67 4.8-10.8 K/uL Red Blood Count 4.53 4.7-6.1 M/uL Hemoglobin 15.2 14.0-18.0 g/dL Hematocrit 42.6 42-52 % Mean Corpuscular Volume 94.0 80-100 fL Mean Corpuscular Hemoglobin 33.6 25-34 pg Mean Corpuscular Hemoglobin Concent 35.7 32-36 g/dl Platelet Count 271 130-400 K/uL Mean Platelet Volume 10.6 7.4-10.4 fL Neutrophils (%) (Auto) 89.8 % Lymphocytes (%) (Auto) 5.0 % Monocytes (%) (Auto) 4.6 % Eosinophils (%) (Auto) 0.3 % Basophils (%) (Auto) 0.1 % Neutrophils # (Auto) 16.77 1.4-6.5 K/uL Lymphocytes # (Auto) 0.93 1.2-3.4 K/uL Monocytes # (Auto) 0.86 0.11-0.59 K/uL Eosinophils # (Auto) 0.05 0-0.5 K/uL Basophils # (Auto) 0.02 0-0.2 K/uL RDW Standard Deviation 44.7 36.4-46.3 fL RDW Coefficient of Variation 13.0 11.5-14.5 % Immature Granulocyte % (Auto) 0.2 % Immature Granulocyte # (Auto) 0.04 0.00-0.02 K/uL Prothrombin Time 10.7 9.0-12.0 SECONDS Prothromb Time International Ratio 1.0 0.9-1.1 Sodium Level 137 136-145 mmol/L Potassium Level 3.8 3.5-5.1 mmol/L Chloride Level 105 98-107 mmol/L Carbon Dioxide Level 23 21-32 mmol/L Anion Gap 9.0 3-11 mmol/L Blood Urea Nitrogen 16 7-18 mg/dl Creatinine 1.02 0.60-1.40 mg/dl Est Creatinine Clear Calc Drug Dose 126.7 ml/min Estimated GFR () 103.9 Estimated GFR (Non- 89.6 BUN/Creatinine Ratio 15.9 10-20 Random Glucose 120 70-99 mg/dl Calcium Level 8.8 8.5-10.1 mg/dl Total Bilirubin 1.9 0.2-1 mg/dl Aspartate Amino Transf (AST/SGOT) 18 15-37 U/L Alanine Aminotransferase (ALT/SGPT) 30 12-78 U/L Alkaline Phosphatase 70 45-117 U/L Total Protein 7.4 6.4-8.2 gm/dl Albumin 4.0 3.4-5.0 gm/dl Globulin 3.4 2.5-4.0 gm/dl Albumin/Globulin Ratio 1.2 0.9-2 Lipase 646 73-393 U/L Urine Color YELLOW Urine Appearance CLEAR CLEAR Urine pH 5.0 4.5-7.5 Urine Specific [place] > 1.045 1.000-1.030 Urine Protein NEG NEG Urine Glucose (UA) NEG NEG Urine Ketones NEG NEG Urine Occult Blood NEG NEG Urine Nitrite NEG NEG Urine Bilirubin NEG NEG Urine Urobilinogen NEG NEG Urine Leukocyte Esterase NEG NEG EKG NSR - evidence of ant AK Impression Assessment and Plan 42 y/o M Hx CAD - NSTEMI 09/23. The pt presents c/o RLQ abdominal pain. CT confirms appendicitis. He was evaluated by the surgical service. Considering his recent AK we are asked to evaluate the pt preop and place him on the medical service. The pt states that since his AK and cath, he as been SOB with exertion. He becomes SOB mowing his lawn or climbing a flight of stairs. He denies any recent CP. He has not had fevers, nausea, vomiting or diarrhea. 1) Pre-op - We cannot fully assess the pt without a repeat echo as his volume status cannot be assessed clinically due to his habitus and he describes exertional dyspnea which he says is new. Additionally, he will need to remain on antiplatelet therapy for the foreseeable future. We will therefore request a cardiology evaluation and a limited echo. It may be reasonable to treat this pt with antibiotics for the next 2-3 months and then schedule surgery following. 2) Appendicitis - surgical risk as above - started on Cipro/Flagyl - surgery to evaluate 3) CAD - recent AK - Pt remains on a Statin, ASA and Brilinta Full code - SCDs Total time for this admit including review of labs, meds, EKG, records - discussion with surgeon, ER and pt - 37 min Resuscitation Status VTE Prophylaxis Will order VTE Prophylaxis: Yes
[2017-10-29] MEDS ORDERED: ONDANSETRON INJ 2 MG/ML 2 ML VIAL IV PRN ×2 (06:15→11:45)
--- NOTE | 2017-10-29 06:17 | Surgery Consultation ---
Consultation Date of Consultation: October 29, 2017. Attending Physician: Reason for Consultation: Appendicitis History of Present Illness I have been asked by Dr. Chao to see this 42-year-old male presented to the emergency room with complaint of abdominal pain that began about 12 hours ago. He states that he developed discomfort in the right lower quadrant. There was no generalized abdominal discomfort. The pain has increased in intensity. It is described as a dull ache however when he moves or when he was coming to the hospital and had a bump it would increase the severity and it would become more sharp. It does not radiate into his back. He had associated nausea on 2 occasions but did not vomit. He has been moving his bowels regularly without melena or hematochezia. There is no diarrhea or constipation. He has no fever with this. He had no chills. He has no dysuria or hematuria. He thinks that he may have had an episode of pain similar to this in character and location 1 month ago but it resolved after a few hours. The patient had a non-STEMI about 6 weeks ago and had 2 coronary artery stents placed. He is on antiplatelet therapy. Past Medical/Surgical History Medical Problems: (1) Appendicitis Status: Acute (2) NSTEMI (non-ST elevated myocardial infarction) Status: Acute PSH: [place] teeth Cardiac cath Family History Heart disease Hypertension Social History Smoking Status: Former Smoker (averaged 1/2 ppd, quit 6 weeks ago after his PR) Drug Use: none Marital Status: single Housing Status: lives with family Occupation Status: employed Allergies Coded Allergies: Opium (Unverified Adverse Reaction, Intermediate, NAUSEA, 10/29/17) Home Medications Scheduled Aspirin (Aspirin Low Dose), 81 MG PO DAILY Atorvastatin (Lipitor), 80 MG PO DAILY Lisinopril (Zestril), 5 MG PO DAILY Metoprolol Tartrate (Lopressor) (Lopressor), 50 MG PO BID Ticagrelor (Brilinta), 90 MG PO BID Current Inpatient Medications Current Inpatient Medications Medications (Trade) Dose Ordered Sig/Kt Route Start Time Stop Time Status Last Admin Dose Admin Ioversol (Optiray 320) 92 ml UD PRN IV 10/29/17 01:45 11/02/17 01:44 Review of Systems Constitutional: No fever, No chills Respiratory: + shortness of breath (with strenuous activity), No cough, No sputum Cardiovascular: + palpitations (may have felt flutter ealier this AM), No edema Abdomen: + problem reported (as per HPI) Genitourinary - Male: No hematuria, No dysuria Endocrine: No fatigue Integumentary: No rash Physical Exam Date Time Temp Pulse Resp B/P (MAP) Pulse Ox O2 Delivery O2 Flow Rate FiO2 10/29/17 04:10 71 18 117/60 99 Room Air 10/29/17 01:47 90 18 152/90 97 Room Air 10/28/17 23:49 36.8 92 18 149/104 94 Room Air General Appearance: WD/WN, no apparent distress Head: normocephalic Neck: supple Respiratory/Chest: chest non-tender, lungs clear Cardiovascular: regular rate, rhythm Abdomen/GI: normal bowel sounds, soft, + tenderness (RLQ) Back: normal inspection, no CVA tenderness Skin: normal color Laboratory Results Last 24 Hours Test 10/29/17 00:32 10/29/17 02:20 White Blood Count 18.67 K/uL Red Blood Count 4.53 M/uL Hemoglobin 15.2 g/dL Hematocrit 42.6 % Mean Corpuscular Volume 94.0 fL Mean Corpuscular Hemoglobin 33.6 pg Mean Corpuscular Hemoglobin Concent 35.7 g/dl Platelet Count 271 K/uL Mean Platelet Volume 10.6 fL Neutrophils (%) (Auto) 89.8 % Lymphocytes (%) (Auto) 5.0 % Monocytes (%) (Auto) 4.6 % Eosinophils (%) (Auto) 0.3 % Basophils (%) (Auto) 0.1 % Neutrophils # (Auto) 16.77 K/uL Lymphocytes # (Auto) 0.93 K/uL Monocytes # (Auto) 0.86 K/uL Eosinophils # (Auto) 0.05 K/uL Basophils # (Auto) 0.02 K/uL RDW Standard Deviation 44.7 fL RDW Coefficient of Variation 13.0 % Immature Granulocyte % (Auto) 0.2 % Immature Granulocyte # (Auto) 0.04 K/uL Prothrombin Time 10.7 SECONDS Prothromb Time International Ratio 1.0 Sodium Level 137 mmol/L Potassium Level 3.8 mmol/L Chloride Level 105 mmol/L Carbon Dioxide Level 23 mmol/L Anion Gap 9.0 mmol/L Blood Urea Nitrogen 16 mg/dl Creatinine 1.02 mg/dl Est Creatinine Clear Calc Drug Dose 126.7 ml/min Estimated GFR () 103.9 Estimated GFR (Non- 89.6 BUN/Creatinine Ratio 15.9 Random Glucose 120 mg/dl Calcium Level 8.8 mg/dl Total Bilirubin 1.9 mg/dl Aspartate Amino Transf (AST/SGOT) 18 U/L Alanine Aminotransferase (ALT/SGPT) 30 U/L Alkaline Phosphatase 70 U/L Total Protein 7.4 gm/dl Albumin 4.0 gm/dl Globulin 3.4 gm/dl Albumin/Globulin Ratio 1.2 Lipase 646 U/L Urine Color YELLOW Urine Appearance CLEAR Urine pH 5.0 Urine Specific [place] > 1.045 Urine Protein NEG Urine Glucose (UA) NEG Urine Ketones NEG Urine Occult Blood NEG Urine Nitrite NEG Urine Bilirubin NEG Urine Urobilinogen NEG Urine Leukocyte Esterase NEG CT scan of the abdomen and pelvis revealed a dilated appendix measuring 10 mm with mild to moderate periappendiceal fat stranding consistent with appendicitis. There is no evidence of perforation or abscess. Assessment & Plan This patient has right lower quadrant pain with an elevated white blood cell count and CAT scan consistent with appendicitis. Considering appendectomy. However considering his recent PR will await cardiology evaluation. He may be a candidate for conservative measures with antibiotic therapy. I have discussed the laparoscopic appendectomy with him and explained the possible need to convert to an open procedure. Explained the possible complications from a surgical standpoint related to those procedures. He has signed a consent form but we will await cardiology input.
--- NOTE | 2017-10-29 06:40 | DIAGNOSTIC IMAGING REPORT ---
CT OF THE ABDOMEN AND PELVIS WITH CONTRAST CLINICAL HISTORY: Right lower quadrant pain and nausea. COMPARISON STUDY: None. TECHNIQUE: Following IV administration of Optiray-320, axial images of the abdomen and pelvis were obtained from the lung bases to the proximal femurs. Images were reviewed in the axial, sagittal, and coronal planes. IV contrast was administered without complication. A dose lowering technique was utilized adhering to the principles of ALARA. CT DOSE: 1579.49 mGy.cm FINDINGS: Lung bases are clear. The liver, spleen, adrenal glands, right kidney and pancreas are normal. 2 cysts within the lower pole the left kidney are noted. There is no evidence for a bowel obstruction. A small fat-containing umbilical hernia is present. Appendix is mildly dilated, measuring 1 cm in caliber. The appendix is fluid-filled. There is mild periappendiceal infiltration. There is a small amount of periappendiceal fluid without abscess. There is no free air. Note is made of colonic diverticula without evidence for acute diverticulitis. No suspicious osseous lesion is present. There is no lymphadenopathy. IMPRESSION: Acute appendicitis. No free air or abscess. Electronically signed by: Immanuel Dyson M.D. 10/29/2017 6:38 AM Dictated Date/Time: 10/29/2017 6:35 AM
[2017-10-29] MEDS ORDERED: FENTANYL CITRATE INJ 50 MCG/1 ML 2 ML VIAL ONE ×2 (10:23→11:38)
[2017-10-29] MEDS ORDERED: MIDAZOLAM HCL 1 MG/ML 2ML VIAL ONE (10:23)
[2017-10-29] MEDS ORDERED: CEFAZOLIN SOD 1 GM VIAL ONE (10:45)
[2017-10-29] MEDS ORDERED: HEPARIN SOD (PORCINE) 1000 UNIT/ML 10 ML VIAL ONE (10:46)
[2017-10-29] MEDS ORDERED: BUPIVACAINE 0.25% 30 ML VIAL ONE (10:57)
[2017-10-29] MEDS ORDERED: CEFAZOLIN SOD 2000MG/15 ML IV PUSH ONE (11:02)
--- NOTE | 2017-10-29 11:12 | CARDIOLOGY CONSULTATION ---
DATE OF CONSULTATION: 10/29/2017 Cardiology consult note. Consultation requested by Dr. Aj. REASON FOR CONSULTATION: Preoperative management, history of coronary artery disease. HISTORY OF PRESENT ILLNESS: Mr. Obregon is a very pleasant 42-year-old man known to me from prior hospitalizations in an outpatient setting with a history of coronary artery disease status post prior PR with PCI to his LAD, who was admitted today in the setting of appendicitis. Patient was previously hospitalized on 09/12/2017 after 2 days of chest heaviness. He was noted to have EKG changes and a troponin that peaked at 33 and eventually underwent cardiac catheterization revealing a chronically occluded RCA with left to right collaterals and a 99% mid LAD stenosis with distal REGINA-1 flow. He was treated with 1 drug-eluting stent ([place] 3.5 x 38) with good angiographic result. Post-procedure echocardiogram showed largely preserved LV function with an EF of 55-60% with apical hypokinesis. Since discharge, he has been doing reasonably well. He has been slowly resuming normal activities, been maintained on dual antiplatelet therapy. Yesterday approximately 5:00 p.m. developed a right lower quadrant abdominal pain which persisted causing him to present to the ED. He was noted to have a leukocytosis and CT scan confirmed acute appendicitis. He was seen by general surgery who was recommending a laparoscopic appendectomy. PAST MEDICAL HISTORY: 1. Coronary artery disease, just above. 2. Peripheral neuropathy. 3. Long history of tobacco use. FAMILY HISTORY: Coronary artery disease. SOCIAL HISTORY: Lives with his fianc?e, has stopped smoking. Denies any alcohol, currently working at the [employer]. HOME MEDICATIONS: Include aspirin 81, atorvastatin 80, Brilinta 90, lisinopril 5, metoprolol tartrate 50 mg b.i.d. REVIEW OF SYSTEMS: A 10-point review of systems completed and otherwise negative unless stated in HPI. PHYSICAL EXAMINATION: VITAL SIGNS: Temperature 36.8, pulse 71, blood pressure 128/77, sating 94% on room air. GENERAL: Patient appears comfortable in no acute distress. HEENT: Sclerae are anicteric. His oropharynx is clear. LUNGS: Clear to auscultation bilaterally. CARDIAC: Regular rate and rhythm with no appreciable murmurs. ABDOMEN: Soft, was tender in the right lower quadrant with diminished bowel sounds. EXTREMITIES: Warm. He had no significant lower extremity edema. He had intact 2+ pulses throughout. SKIN: Showed no rashes or lesions. NEUROLOGIC: Nonfocal. LABORATORY DATA: White blood cell count was 18.7, hemoglobin of 15.2, platelets of 271. Sodium 137, potassium of 3.8, BUN 16, creatinine 1.2. His T-bili was elevated at 1.9. His lipase was elevated at 646. IMAGING: CT scan as discussed above. IMPRESSION AND PLAN: 1. Acute appendicitis. 2. Prior [id number] myocardial infarction with known multivessel disease and prior percutaneous coronary intervention to mid left anterior descending. 3. Prior tobacco abuse. Mr. Obregon is here with acute appendicitis for which a laparoscopic appendectomy is being recommended by general surgery. He is more than 6 weeks out from NSTEMI with a drug-eluting stent placed to his mid LAD. In that setting, I feel that risk of cardiac events is intermediate but not prohibitive for planned surgery. Late stent thrombosis remains a concern but feel far enough removed from stent placement and with the use of large 3rd generation stent, I feel that the risk is relatively low and acceptable. Discussed care with Dr. Aj. Would recommend resuming dual antiplatelet therapy as soon as possible from a surgical standpoint, likely tomorrow a.m. We will continue to follow patient in the perioperative setting. Thank you for consultation. JODI
[2017-10-29] MEDS ORDERED: SUCCINYLCHOLINE CHLORIDE 20 MG/ML 10 ML VIAL IV ONE (11:32)
[2017-10-29] MEDS ORDERED: NEOSTIGMINE METHYLSULFATE 5 MG/5 ML SYR ONE (11:32)
[2017-10-29] MEDS ORDERED: ONDANSETRON INJ 2 MG/ML 2 ML VIAL ONE (11:32)
[2017-10-29] MEDS ORDERED: DEXAMETHASONE SOD INJ 4 MG/ML VIAL ONE (11:32)
[2017-10-29] MEDS ORDERED: PHENYLEPHRINE 100MCG/ML 5ML SYR ONE (11:32)
[2017-10-29] MEDS ORDERED: LIDOCAINE HCL 2% 2 ML VIAL (20MG/ML) ONE (11:32)
[2017-10-29] MEDS ORDERED: PROPOFOL IV EMULSION 10 MG/ML 20 ML VIAL ONE ×2 (11:32→12:39)
[2017-10-29] MEDS ORDERED: GLYCOPYRROLATE INJ 0.2 MG/ML VIAL ONE (11:32)
[2017-10-29] MEDS ORDERED: ROCURONIUM BROMIDE 10 MG/ML 5 ML VIAL ONE (11:32)
[2017-10-29] MEDS ORDERED: ATROPINE SULFATE 0.1 MG/ML 5ML SYR IV PRN (11:45)
[2017-10-29] MEDS ORDERED: EpHEDrine SULFATE INJ 50 MG/ML AMP IV PRN (11:45)
[2017-10-29] MEDS ORDERED: FENTANYL CITRATE INJ 50 MCG/1 ML 2 ML VIAL IV PRN (11:45)
--- NOTE | 2017-10-29 12:54 | [facility] Post Operative Brief Note ---
Immediate Operative Summary Operative Date October 29, 2017. Pre-Operative Diagnosis Appendicitis Post-Operative Diagnosis Same as preoperative. Procedure(s) Performed Laparoscopic Appendectomy Surgeon Dr. Ethan Aj Mud Jack Nozzle Worker Surgeon(s) None per surgeon Estimated Blood Loss 5ml Findings Consistent with Post-Op Diagnosis Specimens A.) Appendix and contents Drains None Anesthesia Type General Complication(s) none
[2017-10-29] MEDS ORDERED: MoRPHine SULFATE 4 MG/ML 1 ML CARP\\VIAL IV PRN (13:00)
[2017-10-29] MEDS ORDERED: OXYCODONE/ACETAMINOPHEN 5-325 TAB PO PRN (13:00)
--- NOTE | 2017-10-29 14:08 | Anesthesiology Progress Note ---
Anesthesia Post Op Note Date & Time October 29, 2017 at 14:06 Vital Signs Pain Intensity: 0 Vital Signs Past 12 Hours Date Time Temp Pulse Resp B/P (MAP) Pulse Ox O2 Delivery O2 Flow Rate FiO2 10/29/17 14:00 64 16 144/87 97 Nasal Cannula 2 10/29/17 13:45 36.4 66 16 139/86 96 Nasal Cannula 2 10/29/17 13:30 61 16 134/80 96 Nasal Cannula 2 10/29/17 13:20 63 16 137/82 96 Nasal Cannula 2 10/29/17 13:10 71 16 143/83 96 Nasal Cannula 3 10/29/17 13:00 36.5 71 16 140/84 97 Nasal Cannula 4 10/29/17 10:25 36.7 71 18 125/81 95 10/29/17 09:56 71 18 125/81 95 10/29/17 07:29 70 18 128/77 94 Room Air 10/29/17 07:00 99 Room Air 10/29/17 06:02 36.7 74 18 131/83 99 Room Air 10/29/17 04:10 71 18 117/60 99 Room Air Notes Mental Status: alert / awake / arousable, participated in evaluation Pt Amnestic to Procedure: Yes Nausea / Vomiting: adequately controlled Pain: adequately controlled Airway Patency, RR, SpO2: stable & adequate BP & HR: stable & adequate Hydration State: stable & adequate Anesthetic Complications: no major complications apparent Anesthetic Complications: Patient did well throughout the perioperative period. No evidence of cardiac ischemia on telemetry and hemodynamically stable throughout his period in the operating room and while in PACU. In PACU patient denied chest pain and reported mild tenderness in abdomen as expected after lap Appy. OK to discharge back to the floor.
--- NOTE | 2017-10-29 15:20 | OPERATIVE REPORT ---
DATE OF OPERATION: 10/29/2017 PREOPERATIVE DIAGNOSIS: Appendicitis. POSTOPERATIVE DIAGNOSIS: Same. PROCEDURE: Laparoscopic appendectomy. SURGEON: Ethan Aj MD FINDINGS: The appendix was dilated and inflamed. There was a lot of inflammatory response around it. It was the middle third. The tip and distal third were narrow and squad. The base of the appendix was normal as was the cecum, especially at the base of the appendix. There was no evidence of perforation or abscess. TECHNIQUE: The patient was given a general anesthetic and the area was prepped and draped in the usual sterile fashion. Transverse incision was made below the umbilicus, carried down through the subcutaneous tissue to the fascia which was grasped with 2 Alexandra clamps and incised between. The peritoneum was identified, incised, and the introducer was placed bluntly. The abdomen was then insufflated to a pressure of 15 mmHg of carbon dioxide. The upper midline, midclavicular and anterior axillary introducers were placed under direct vision through small skin incisions. Traction was placed anteriorly on the appendix. It was densely adherent to the lateral abdominal wall. Those adhesions had to be taken down using blunt and cautery dissection which then allowed me to elevate the appendix. The mesoappendix was adherent to the mesentery of the terminal ileum that was using blunt dissection which allowed me to elevate the appendix even further. I was then able to establish a plane in the mid portion of the mesoappendix and divided that using the Endo-MONIK stapler. That allowed me to more mobilization of the appendix and allowed me to elevate it even further. I was then able to identify the base of the appendix and its connection with the cecum. I was able to establish a plane between the mesoappendix and the base of the appendix and divided the mesoappendix using the Endo-MONIK. That allowed me then to confirm I was at the base of the appendix and the appendix was amputated using the Endo-MONIK. The appendix was placed into an Endobag and brought it through the left lower quadrant introducer site. The introducer was replaced. There was some oozing from the staple line and I could not control with cautery and so was clipped. That was on the mesoappendix. The other mesoappendix staple line also had some oozing that was clipped. The right lower quadrant was irrigated and irrigation was removed and any irrigation that entered the right upper quadrant or pelvis was removed. The area was inspected for further bleeding and none was seen. The gas was allowed to escape and the introducers were removed. The fascia of the umbilical introducer site and left lower quadrant introducer sites were closed with interrupted 0 Vicryl. The skin of all the incisions was closed with 4-0 Monocryl in either an interrupted or running subcuticular fashion. The skin was anesthetized with 0.25% Marcaine. The skin was cleansed, dried, benzoin placed, Steri-Strips applied. The estimated blood loss was 8 mL. Sponge, needle and instrument counts were correct prior to closure. The patient tolerated the surgical procedure without complication and was transferred to recovery. I attest to the content of the Intraoperative Record and any orders documented therein. Any exception s are noted below.
--- NOTE | 2017-10-29 16:04 | Progress Note ---
Progress Note Date of Service October 29, 2017. Progress Note 42 y/o M Hx CAD - NSTEMI 09/23 admitted today because of acute appendicitis Patient c/o RLQ abdominal pain. CT confirms appendicitis, associated with leukocytosis, Patient had appendectomy done by surgeon I saw him in the postop, he look tired, denies chest pain palpitations shortness of breath, No fever and chills Denies pain In the physical exam S1-S2 no murmur, bilateral not decreased breathing sounds, abdomen is soft, lower extremity no swelling No facial droop or slurry speech is Per facility attendant patient will be okay to restart dual anticoagulation with ASA and Brilinta Because of recent non-STEMI, I am transferring him to monitored bed, check cardiac enzyme troponin now, for baseline number Will continue follow-up
[2017-10-29] MEDS: METRONIDAZOLE / NSS 500 MG in PREMIXED NSS 100 ML IV SCH (16:05)
[2017-10-29 17:12] LABS: CKMB 1.4 ng/ml (0.5-3.6)
[2017-10-29] MEDS: D5NSS + 20MEQ KCL 1,000 ML IV SCH (17:34)
[2017-10-29] MEDS: CIPROFLOXACIN / D5W 400 MG in PREMIXED IN D5W 200 ML IV SCH (18:42)
[2017-10-29] MEDS: TICAGRELOR 90 MG TAB PO SCH (21:01)
[2017-10-29] MEDS: METOPROLOL TARTRATE 50 MG TAB PO SCH (21:01)
[2017-10-29] MEDS ORDERED: ACETAMINOPHEN 325 MG TAB PO PRN (22:00)
[2017-10-29 23:35] LABS: CKMB 1.1 ng/ml (0.5-3.6)
[2017-10-30] MEDS: METRONIDAZOLE / NSS 500 MG in PREMIXED NSS 100 ML IV SCH ×2 (00:20→09:38)
[2017-10-30] MEDS: D5NSS + 20MEQ KCL 1,000 ML IV SCH (02:29)
[2017-10-30 04:45] VITALS: BP 133/75; PULSE 89; TEMP 36.8; O2SAT 95
[2017-10-30 06:22] VITALS: BP 136/80; PULSE 82; TEMP 36.9; O2SAT 96
[2017-10-30] MEDS: CIPROFLOXACIN / D5W 400 MG in PREMIXED IN D5W 200 ML IV SCH (06:25)
[2017-10-30 06:40] LABS: BASO % 0.1 %; BASO ABS # 0.01 K/uL (0-0.2); HEMATOCRIT 41.3 % (42-52); HEMOGLOBIN 14.4 g/dL (14.0-18.0); IG# 0.05 K/uL (0.00-0.02); LYMPH ABS # 0.68 K/uL (1.2-3.4); MEAN CELL VOLUME 94.9 fL (80-100); MEAN CORPUSCULAR HEMOGLOBIN 33.1 pg (25-34); MEAN CORPUSCULAR HGB CONC 34.9 g/dl (32-36); MEAN PLATELET VOLUME 10.6 fL (7.4-10.4); MONO % 7.7 %; MONO ABS # 1.05 K/uL (0.11-0.59); NEUT % 86.8 %; NEUT ABS # 11.78 K/uL (1.4-6.5); PLATELET COUNT 287 K/uL (130-400); RED CELL DISTRIBUTION WIDTH CV 12.9 % (11.5-14.5); RED CELL DISTRIBUTION WIDTH SD 44.9 fL (36.4-46.3); WHITE BLOOD COUNT 13.57 K/uL (4.8-10.8)
[2017-10-30 07:07] LABS: CALCIUM 8.5 mg/dl (8.5-10.1); CREATININE 0.91 mg/dl (0.60-1.40); POTASSIUM 4.1 mmol/L (3.5-5.1)
[2017-10-30 08:00] VITALS: PULSE 80
--- NOTE | 2017-10-30 08:01 | Surgery Progress Note ---
Surgery Progress Note Date of Service October 30, 2017. Subjective Post OP Day: 1 + feeling well, + ambulating, + pain controlled, + diet (tolerated regular diet) , No nausea, No vomiting Objective Vital Signs: Date Time Temp Pulse Resp B/P (MAP) Pulse Ox O2 Delivery O2 Flow Rate FiO2 10/30/17 06:22 36.9 82 18 136/80 (98) 96 Room Air 10/30/17 04:45 36.8 89 19 133/75 (94) 95 Room Air 10/30/17 04:00 Room Air 10/29/17 23:59 Room Air 10/29/17 22:59 37.0 86 18 143/83 (103) 96 Room Air 10/29/17 20:00 Room Air 10/29/17 19:27 36.9 93 17 142/92 (109) 96 Room Air 10/29/17 18:21 36.7 82 20 139/88 (105) 96 Nasal Cannula 2.0 10/29/17 17:21 36.6 64 17 136/87 (103) 97 Nasal Cannula 2.0 10/29/17 17:15 36.6 64 17 144/92 (109) 96 Nasal Cannula 2.0 10/29/17 16:50 36.8 74 16 138/88 (105) 96 Nasal Cannula 2.0 10/29/17 15:45 36.8 66 16 144/91 (108) 97 Nasal Cannula 2.0 10/29/17 15:15 96 Nasal Cannula 2.0 10/29/17 15:15 97 Nasal Cannula 2.0 10/29/17 15:00 64 16 140/93 96 Nasal Cannula 2 10/29/17 14:45 64 18 148/89 96 Nasal Cannula 2 10/29/17 14:30 65 18 148/53 96 Nasal Cannula 2 10/29/17 14:15 76 18 145/90 97 Nasal Cannula 2 10/29/17 14:00 64 16 144/87 97 Nasal Cannula 2 10/29/17 13:45 36.4 66 16 139/86 96 Nasal Cannula 2 10/29/17 13:30 61 16 134/80 96 Nasal Cannula 2 10/29/17 13:20 63 16 137/82 96 Nasal Cannula 2 10/29/17 13:10 71 16 143/83 96 Nasal Cannula 3 10/29/17 13:00 36.5 71 16 140/84 97 Nasal Cannula 4 10/29/17 10:25 36.7 71 18 125/81 95 10/29/17 09:56 71 18 125/81 95 Abdomen: non distended, soft Incision(s): clean, dry, intact, no erythema, no drainage Laboratory Results: Results Past 24 Hours Test 10/29/17 15:57 10/29/17 16:30 10/29/17 22:50 10/30/17 06:28 Range/Units Creatine Kinase MB Ratio 0-3.0 Creatine Kinase MB 1.4 1.1 0.5-3.6 ng/ml Troponin I < 0.015 < 0.015 0-0.045 ng/ml White Blood Count 13.57 4.8-10.8 K/uL Red Blood Count 4.35 4.7-6.1 M/uL Hemoglobin 14.4 14.0-18.0 g/dL Hematocrit 41.3 42-52 % Mean Corpuscular Volume 94.9 80-100 fL Mean Corpuscular Hemoglobin 33.1 25-34 pg Mean Corpuscular Hemoglobin Concent 34.9 32-36 g/dl Platelet Count 287 130-400 K/uL Mean Platelet Volume 10.6 7.4-10.4 fL Neutrophils (%) (Auto) 86.8 % Lymphocytes (%) (Auto) 5.0 % Monocytes (%) (Auto) 7.7 % Eosinophils (%) (Auto) 0.0 % Basophils (%) (Auto) 0.1 % Neutrophils # (Auto) 11.78 1.4-6.5 K/uL Lymphocytes # (Auto) 0.68 1.2-3.4 K/uL Monocytes # (Auto) 1.05 0.11-0.59 K/uL Eosinophils # (Auto) 0.00 0-0.5 K/uL Basophils # (Auto) 0.01 0-0.2 K/uL RDW Standard Deviation 44.9 36.4-46.3 fL RDW Coefficient of Variation 12.9 11.5-14.5 % Immature Granulocyte % (Auto) 0.4 % Immature Granulocyte # (Auto) 0.05 0.00-0.02 K/uL Sodium Level 138 136-145 mmol/L Potassium Level 4.1 3.5-5.1 mmol/L Chloride Level 108 98-107 mmol/L Carbon Dioxide Level 23 21-32 mmol/L Anion Gap 7.0 3-11 mmol/L Blood Urea Nitrogen 12 7-18 mg/dl Creatinine 0.91 0.60-1.40 mg/dl Est Creatinine Clear Calc Drug Dose 139.9 ml/min Estimated GFR () 119.2 Estimated GFR (Non- 102.9 BUN/Creatinine Ratio 12.7 10-20 Random Glucose 142 70-99 mg/dl Calcium Level 8.5 8.5-10.1 mg/dl Phosphorus Level 2.0 2.5-4.9 mg/dl Magnesium Level 2.1 1.8-2.4 mg/dl Assessment & Plan S/P laparoscopic appendectomy Doing well fom surgical standpoint Can go home from surgical standpoint Discussed postoperative instructions
[2017-10-30] MEDS: METOPROLOL TARTRATE 50 MG TAB PO SCH (08:15)
[2017-10-30] MEDS: TICAGRELOR 90 MG TAB PO SCH (08:16)
--- NOTE | 2017-10-30 08:29 | Anesthesiology Progress Note ---
Anesthesia Post Op Note Date & Time October 30, 2017 at 08:28 Vital Signs Pain Intensity: 3.0 Vital Signs Past 12 Hours Date Time Temp Pulse Resp B/P (MAP) Pulse Ox O2 Delivery O2 Flow Rate FiO2 10/30/17 06:22 36.9 82 18 136/80 (98) 96 Room Air 10/30/17 04:45 36.8 89 19 133/75 (94) 95 Room Air 10/30/17 04:00 Room Air 10/29/17 23:59 Room Air 10/29/17 22:59 37.0 86 18 143/83 (103) 96 Room Air Notes Mental Status: alert / awake / arousable, participated in evaluation Pt Amnestic to Procedure: Yes Nausea / Vomiting: adequately controlled Pain: adequately controlled Airway Patency, RR, SpO2: stable & adequate BP & HR: stable & adequate Hydration State: stable & adequate Anesthetic Complications: no major complications apparent
[2017-10-30] MEDS ORDERED: ASPIRIN 81 MG ECTAB PO SCH (09:00)
[2017-10-30] MEDS ORDERED: ATORVASTATIN 40 MG TAB PO SCH (09:00)
--- NOTE | 2017-10-30 09:01 | ECHOCARDIOGRAM REPORT ---
*NOTICE TO RECEIVING [employer] This information is strictly Confidential and protected under [place] law. [place] law prohibits you from making any further disclosure of this information unless further disclosure is expressly permitted by the written consent of the person to whom it pertains or is authorized by law. A general authorization for the release of medical or other information is not sufficient for this purpose. Hospital accepts no responsibility if the information is made available to any other person, INCLUDING THE PATIENT. Interpretation Summary * Conclusions -- * 1. Normal LV size and wall thickness. * 2. Normal LV systolic function. LVEF 60-65%. Apical septal hypokinesis. * 3. RV borderline dilated, RV function normal. * 4. No significant valvular pathology. * 5. Compared with prior study on 09/15/2017: LV function has improved. Procedure Details * Left Ventricle The left ventricle is grossly normal size. There is normal left ventricular wall thickness. Ejection Fraction = 60-65%. Mild apical septal hypokinesis. * Right Ventricle The right ventricle is borderline dilated. The right ventricular systolic function is normal as assessed by tricuspid annular plane systolic excursion (TAPSE) (normal >1.5 cm). * Atria The left atrial size is normal. The right atrium is mildly dilated. No ASD detected; PFO is not assessed. * Mitral Valve The mitral valve is grossly normal. There is no mitral valve stenosis. Significant mitral regurgitation is absent. * Tricuspid Valve Significant tricuspid regurgitation is absent. * Aortic Valve The aortic valve opens well. The aortic valve is trileaflet. No hemodynamically significant valvular aortic stenosis. There is no significant aortic regurgitation. * Pulmonic Valve The pulmonic valve is not well visualized. * Great Vessels The aortic root and proximal ascending aorta are normal sized. * Pericardium/Pleural There is no pericardial effusion. * Great Vessels IVC not visualized * * MMode 2D Measurements and Calculations * IVSd 1.1 cm * IVSs 1.9 cm * * LVIDd 5.9 cm * LVIDs 3.7 cm * LVPWd 0.65 cm * LVPWs 1.1 cm * * IVS/LVPW 1.7 * FS 37.7 % * EDV(Teich) 172.7 ml * ESV(Teich) 57.0 ml * EF(Teich) 67.0 % * * EDV(cubed) 204.5 ml * ESV(cubed) 49.4 ml * EF(cubed) 75.8 % * % IVS thick 70.4 % * % LVPW thick 68.8 % * * LV mass(C)d 203.0 grams * LV mass(C)dI 83.8 grams/m\S\2 * LV mass(C)s 204.8 grams * LV mass(C)sI 84.6 grams/m\S\2 * * SV(Teich) 115.6 ml * SI(Teich) 47.8 ml/m\S\2 * SV(cubed) 155.1 ml * SI(cubed) 64.0 ml/m\S\2 * * LA dimension 3.9 cm * * asc Aorta Diam 3.2 cm * * LVOT diam 2.2 cm * LVOT area 3.8 cm\S\2 * * LVAd ap4 37.5 cm\S\2 * LVLd ap4 8.7 cm * EDV(MOD-sp4) 131.9 ml * EDV(sp4-el) 137.9 ml * LVAs ap4 20.4 cm\S\2 * LVLs ap4 7.8 cm * ESV(MOD-sp4) 43.8 ml * ESV(sp4-el) 45.3 ml * EF(MOD-sp4) 66.8 % * EF(sp4-el) 67.1 % * * LVAd ap2 39.9 cm\S\2 * LVLd ap2 8.9 cm * EDV(MOD-sp2) 153.1 ml * EDV(sp2-el) 152.0 ml * LVAs ap2 21.7 cm\S\2 * LVLs ap2 7.2 cm * ESV(MOD-sp2) 57.0 ml * ESV(sp2-el) 55.0 ml * EF(MOD-sp2) 62.8 % * EF(sp2-el) 63.8 % * * LVLd %diff 2.5 % * EDV(MOD-bp) 140.3 ml * LVLs %diff -7.47 % * ESV(MOD-bp) 51.9 ml * EF(MOD-bp) 63.0 % * * SV(MOD-sp4) 88.1 ml * SI(MOD-sp4) 36.4 ml/m\S\2 * * SV(MOD-sp2) 96.1 ml * SI(MOD-sp2) 39.7 ml/m\S\2 * * SV(MOD-bp) 88.4 ml * SI(MOD-bp) 36.5 ml/m\S\2 * * SV(sp4-el) 92.6 ml * SI(sp4-el) 38.2 ml/m\S\2 * * SV(sp2-el) 97.0 ml * SI(sp2-el) 40.1 ml/m\S\2 * * * * *
--- NOTE | 2017-10-30 09:46 | Cardiology Follow-Up ---
Subjective Subjective Date of Service: October 30, 2017. Pt evaluation today including: conversation w/ patient, conversation w/ family , physical exam, chart review, lab review, review of studies, review of inpatient medication list Additional Details: Feeling well. Minimal abdominal discomfort. Tolerating diet. No chest pain or shortness of breath. Telemetry reviewed--no events Problem List Medical Problems: (1) Appendicitis Status: Acute (2) NSTEMI (non-ST elevated myocardial infarction) Status: Acute Review of Systems Constitutional: No fever, No chills Respiratory: No cough Cardiac: No chest pain Abdomen: + pain, No nausea Male : No dysuria Neurologic: No memory loss Endo: No fatigue Skin: No rash Objective Vital Signs Last Vital Signs Documentation Date Time Temp Pulse Resp B/P (MAP) Pulse Ox O2 Delivery O2 Flow Rate FiO2 10/30/17 08:00 Room Air 10/30/17 08:00 80 10/30/17 06:22 36.9 18 136/80 (98) 96 10/29/17 18:21 2.0 Physical Exam: General Appearance: no apparent distress Respiratory/Chest: lungs clear, normal breath sounds Cardiovascular: regular rate, rhythm, no murmur Abdomen: normal bowel sounds, non tender, soft, + pertinent finding ( Laparoscopic incisions clean dry and intact. Mild abdominal tenderness) Extremities: no pedal edema, no calf tenderness Neurologic/Psychiatric: alert, oriented x 3 Skin: warm/dry Assessment and Plan 1. Acute appendicitis 2. Multivessel coronary artery disease post NSTEMI with PCI 09/2017 Patient tolerated surgery well. Has been restarted on dual antiplatelet therapy. LV function improved on repeat echo today From a cardiac standpoint okay with discharge today. Home on prior cardiac regimen including Brilinta and aspirin. Follow-up with cardiac rehab when okay from a general surgery standpoint Medications: Current Inpatient Medications Medications (Trade) Dose Ordered Sig/Kt Route Start Time Stop Time Status Last Admin Dose Admin Ioversol (Optiray 320) 92 ml UD PRN IV 10/29/17 01:45 11/02/17 01:44 Ondansetron HCl (Zofran Inj) 4 mg Q6H PRN IV 10/29/17 06:15 11/28/17 06:14 Potassium Chloride/Dextrose/ Sod Cl 1,000 ml @ 100 mls/hr Q10H IV 10/29/17 16:00 10/30/17 11:59 10/30/17 02:29 100 MLS/HR Aspirin (Ecotrin Tab) 81 mg DAILY PO 10/30/17 09:00 11/29/17 08:59 10/30/17 08:15 81 MG Atorvastatin Calcium (Lipitor Tab) 80 mg DAILY PO 10/30/17 09:00 11/29/17 08:59 10/30/17 08:16 80 MG Metoprolol Tartrate (Lopressor Tab) 50 mg BID PO 10/29/17 21:00 11/28/17 20:59 10/30/17 08:15 50 MG Ticagrelor (Brilinta Tab) 90 mg BID PO 10/29/17 21:00 11/28/17 20:59 10/30/17 08:16 90 MG Ciprofloxacin/ Dextrose 400 mg/ Prmx 200 ml @ 100 mls/hr Q12H IV 10/29/17 18:00 11/08/17 17:59 10/30/17 06:25 100 MLS/HR Metronidazole 500 mg/Prmx 100 ml @ 100 mls/hr Q8H IV 10/29/17 16:00 11/08/17 15:59 10/30/17 09:38 100 MLS/HR Morphine Sulfate (MoRPHine SULFATE INJ) 4 mg Q1H PRN IV 10/29/17 13:00 11/12/17 12:59 Oxycodone/ Acetaminophen (Percocet 5-325mg Tab) 1 tab Q4H PRN PO 10/29/17 13:00 11/12/17 12:59 Acetaminophen (Tylenol Tab) 325 mg Q4H PRN PO 10/29/17 22:00 11/28/17 21:59 10/29/17 22:10 325 MG Lab Results: 10/30/17 06:28 Red Blood Count 4.35, Mean Corpuscular Volume 94.9, Mean Corpuscular Hemoglobin 33.1, Mean Corpuscular Hemoglobin Concent 34.9, Mean Platelet Volume 10.6, Neutrophils (%) (Auto) 86.8, Lymphocytes (%) (Auto) 5.0, Monocytes (%) (Auto) 7.7, Eosinophils (%) (Auto) 0.0, Basophils (%) (Auto) 0.1, Neutrophils # (Auto) 11.78, Lymphocytes # (Auto) 0.68, Monocytes # (Auto) 1.05, Eosinophils # (Auto) 0.00, Basophils # (Auto) 0.01 10/30/17 06:28 Test 10/29/17 22:50 10/30/17 06:28 Creatine Kinase MB 1.1 ng/ml (0.5-3.6) Creatine Kinase MB Ratio (0-3.0) Troponin I < 0.015 ng/ml (0-0.045) White Blood Count 13.57 K/uL (4.8-10.8) Red Blood Count 4.35 M/uL (4.7-6.1) Hemoglobin 14.4 g/dL (14.0-18.0) Hematocrit 41.3 % (42-52) Mean Corpuscular Volume 94.9 fL (80-100) Mean Corpuscular Hemoglobin 33.1 pg (25-34) Mean Corpuscular Hemoglobin Concent 34.9 g/dl (32-36) Platelet Count 287 K/uL (130-400) Mean Platelet Volume 10.6 fL (7.4-10.4) Neutrophils (%) (Auto) 86.8 % Lymphocytes (%) (Auto) 5.0 % Monocytes (%) (Auto) 7.7 % Eosinophils (%) (Auto) 0.0 % Basophils (%) (Auto) 0.1 % Neutrophils # (Auto) 11.78 K/uL (1.4-6.5) Lymphocytes # (Auto) 0.68 K/uL (1.2-3.4) Monocytes # (Auto) 1.05 K/uL (0.11-0.59) Eosinophils # (Auto) 0.00 K/uL (0-0.5) Basophils # (Auto) 0.01 K/uL (0-0.2) RDW Standard Deviation 44.9 fL (36.4-46.3) RDW Coefficient of Variation 12.9 % (11.5-14.5) Immature Granulocyte % (Auto) 0.4 % Immature Granulocyte # (Auto) 0.05 K/uL (0.00-0.02) Anion Gap 7.0 mmol/L (3-11) Est Creatinine Clear Calc Drug Dose 139.9 ml/min Estimated GFR () 119.2 Estimated GFR (Non- 102.9 BUN/Creatinine Ratio 12.7 (10-20) Calcium Level 8.5 mg/dl (8.5-10.1) Phosphorus Level 2.0 mg/dl (2.5-4.9) Magnesium Level 2.1 mg/dl (1.8-2.4)
[2017-10-30] MEDS ORDERED: OXYC-57 PO (09:54)
[2017-10-30] MEDS ORDERED: CPR500 PO (09:54)
[2017-10-30] MEDS ORDERED: METR-162 PO (09:54)
--- NOTE | 2017-10-30 09:57 | Discharge Instructions ---
Discharge Instructions Date of Service October 30, 2017. Admission Reason for Admission: Appendicitis, Exertional Dyspnea Discharge Discharge Diagnosis / Problem: Appendicitis Discharge Goals Goal(s): Decrease discomfort, Improve function, Increase independence, Improve disease control, Learn about illness, Diagnostic testing, Therapeutic intervention, Prevent Disease Progression Activity Recommendations Activity Limitations: per Instructions/Follow-up section (As per Dr. Aj recommendations) . Instructions / Follow-Up Instructions / Follow-Up Appendicitis: Surgical site care and acitivity instructions as per Dr. Aj Ciprofloxacin 500 mg twice daily and Flagyl 500 mg three times a day until prescription is completed Continue all other regular home medications as prescribed FOLLOW-UPS: Please follow-up with your PCP within 5-7 days Please follow-up with surgery within 2 weeks Follow-up with Cardiology as instructed by Dr. Brown Please follow-up/keep all of your subspecialty appointments Current Hospital Diet Patient's current hospital diet: Regular Diet Discharge Diet Recommended Diet: AHA Diet (Heart Healthy) Procedures Procedures Performed: Laparoscopic Appendectomy Pending Studies Studies pending at discharge: no Laboratory Results Lipid Panel Test 09/13/17 03:38 Range/Units Triglycerides Level 83 0-150 mg/dl Cholesterol Level 150 0-200 mg/dl HDL Cholesterol 36 mg/dl Cholesterol/HDL Ratio 4.2 LDL Cholesterol, Calculated 97 mg/dl Medical Emergencies . Who to Call and When: Medical Emergencies: If at any time you feel your situation is an emergency, please call 911 immediately. . Non-Emergent Contact Non-Emergency issues call your: Primary Care Provider, Surgeon Call Non-Emergent contact if: you have a fever, your pain is not controlled, your pain is worsening, your pain is unusual for you, your pain is concerning you, wound has increased drainage, wound has increased redness, wound has increased pain, you have any medication questions . . "Provider Documentation" section prepared by Jael Ayala. . Account Manager Relief Recommendations Account Manager Relief Recommendations: No heavy lifting over 20 pounds for 2 weeks No strenuous activity until cleared by surgeon No submerging incisions underwater for 2 weeks (no bathing, swimming, or hot tubs) No driving while taking narcotic pain medication or until you are pain free You may shower. Gently clean incisions with soap and water Remove steri strips on incisions in 7 days. They may fall off on their own that is okay. Take Narcotic pain medication as prescribed for moderate to severe pain. This medication may make you drowsy and can cause constipation To combat constipation you may take OTC stool softener, drink plenty of water, avoid foods that constipation and may take gentle laxative or prune juice if needed Follow-up in surgical office in 1-2 weeks, please call office at [phone] to make an appointment
[2017-10-30] MEDS ORDERED: POT PHOSPHATE MONOBASIC W/ SOD TAB PO ONE (10:00)
--- NOTE | 2017-10-30 10:02 | Discharge Summary ---
Discharge Summary Date of Service October 30, 2017. Discharge Summary Admission Date: October 29, 2017 at 06:06 Discharge Date: October 30, 2017 Discharge Disposition: Home Principal Diagnosis: Appendicitis Problems/Secondary Diagnoses: Appendicitis s/p lap appendectomy by Dr. Aj on 10/29 CAD s/p NSTEMI w/ MARY in 09/2017 HLD HTN Hypophosphatemia Procedures: DICTATED BY: Ethan Aj M.D. DATE OF OPERATION: 10/29/2017 PREOPERATIVE DIAGNOSIS: Appendicitis. POSTOPERATIVE DIAGNOSIS: Same. PROCEDURE: Laparoscopic appendectomy. SURGEON: Ethan Aj MD ECHOCARDIOGRAM: Interpretation Summary * Conclusions -- * 1. Normal LV size and wall thickness. * 2. Normal LV systolic function. LVEF 60-65%. Apical septal hypokinesis. * 3. RV borderline dilated, RV function normal. * 4. No significant valvular pathology. * 5. Compared with prior study on 09/15/2017: LV function has improved. Procedure Details * Left Ventricle The left ventricle is grossly normal size. There is normal left ventricular wall thickness. Ejection Fraction = 60-65%. Mild apical septal hypokinesis. * Right Ventricle The right ventricle is borderline dilated. The right ventricular systolic function is normal as assessed by tricuspid annular plane systolic excursion (TAPSE) (normal >1.5 cm). * Atria The left atrial size is normal. The right atrium is mildly dilated. No ASD detected; PFO is not assessed. * Mitral Valve The mitral valve is grossly normal. There is no mitral valve stenosis. Significant mitral regurgitation is absent. * Tricuspid Valve Significant tricuspid regurgitation is absent. * Aortic Valve The aortic valve opens well. The aortic valve is trileaflet. No hemodynamically significant valvular aortic stenosis. There is no significant aortic regurgitation. * Pulmonic Valve The pulmonic valve is not well visualized. * Great Vessels The aortic root and proximal ascending aorta are normal sized. * Pericardium/Pleural There is no pericardial effusion. * Great Vessels IVC not visualized Consultations: Surgery- Dr. Aj Cardiology- Dr. Brown Medication Reconciliation New Medications: Ciprofloxacin (Ciprofloxacin HCl) 500 Mg Tab 500 MG PO BID for 9 Days, #18 TAB Metronidazole (Flagyl) 500 Mg Tab 1 TAB PO TID for 9 Days, #27 TAB Continued Medications: Aspirin (Aspirin Low Dose) 81 Mg Tab 81 MG PO DAILY Atorvastatin (Lipitor) 80 Mg Tab 80 MG PO DAILY, TAB Lisinopril (Zestril) 5 Mg Tab 5 MG PO DAILY, TAB Metoprolol Tartrate (Lopressor) (Lopressor) 50 Mg Tab 50 MG PO BID, TAB Ticagrelor (Brilinta) 90 Mg Tab 90 MG PO BID Referrals At Discharge Follow up Referrals: Family Practice Referral - Within 1 Week with Scott Eduardo D.O. Surgery Referral - Within 2 Weeks with Ethan Aj M.D. Discharge Exam Review of Systems: Constitutional: No fever, No chills, No sweats, No weakness, No fatigue Eyes: No worsening of vision ENT: No hearing loss Respiratory: No cough, No shortness of breath, No hemoptysis Cardiovascular: No chest pain, No edema, No palpitations Abdomen: + pain, No nausea, No vomiting, No diarrhea, No constipation, No GI bleeding Musculoskeletal: No joint pain, No muscle pain, No swelling, No calf pain Genitourinary - Male: No hematuria, No dysuria Neurologic: No weakness, No numbness/tingling Psychiatric: No depression symptoms, No anxiety Endocrine: No fatigue Hematologic / Lymphatic: No abnormal bleeding/bruising Integumentary: No rash, No itch, No new/changing skin lesions Physical Exam: General Appearance: no apparent distress, + obese Eyes: normal inspection, PERRL ENT: hearing grossly normal Neck: supple Respiratory/Chest: lungs clear, no respiratory distress, no accessory muscle use Cardiovascular: regular rate, rhythm Abdomen / GI: normal bowel sounds, soft, + tenderness (around incision sites ), + pertinent finding (incision sites C/D/I) Extremities: no calf tenderness, no pedal edema Neurologic/Psychiatric: alert, normal mood/affect, oriented x 3 Skin: normal color, warm/dry, no rash Hospital Course 42 y/o M Hx CAD- NSTEMI 09/23 admitted because of acute appendicitis Appendicitis s/p lap appendectomy by Dr. Aj on 10/29: - IV Cipro + Flagyl- continue at discharge for a total of 10 days - Percocet PRN + IV Morphine PRN for pain management- denied need/want for narcotics at discharge - Surgery following- stable for discharge from surgical standpoint CAD s/p NSTEMI w/ MARY in 09/2017, HLD, HTN: - Tele for cardiac monitoring- no acute events - Trend cardiac enzymes- negative - ECHO- EF 60-65%- compared to previous ECHO, LV function improved - Continue Brilinta, ASA, Lipitor, Metoprolol - Cardiology consulted, appreciate recommendations- stable for discharge from cardiac standpoint Hypophosphatemia: Replaced w/ PO Phosphate supplement DVT prophylaxis: Brilinta Code status: LEVEL I, FULL Dispo: Discharge to home Total Time Spent: Greater than 30 minutes This includes examination of the patient, discharge planning, medication reconciliation, and communication with other providers. Discharge Instructions Please refer to the electronic Patient Visit Report (Discharge Instructions) for additional information. Follow-Up Please follow-up with your PCP within 5-7 days Please follow-up with surgery within 2 weeks Follow-up with Cardiology as instructed by Dr. Brown Please follow-up/keep all of your subspecialty appointments Additional Copies To Scott Eduardo D.O.
--- NOTE | 2017-10-30 10:21 | Consultant Recommendations ---
Rural Electrification Engineer Recommendations Date of Service October 30, 2017. Rural Electrification Engineer Recommendations No heavy lifting over 20 pounds for 2 weeks No strenuous activity until cleared by surgeon No submerging incisions underwater for 2 weeks (no bathing, swimming, or hot tubs) No driving while taking narcotic pain medication or until you are pain free You may shower. Gently clean incisions with soap and water Remove steri strips on incisions in 7 days. They may fall off on their own that is okay. Take Narcotic pain medication as prescribed for moderate to severe pain. This medication may make you drowsy and can cause constipation To combat constipation you may take OTC stool softener, drink plenty of water, avoid foods that constipation and may take gentle laxative or prune juice if needed Follow-up in surgical office in 1-2 weeks, please call office at [phone] to make an appointment
[2017-10-30 11:49] VITALS: BP 144/87; PULSE 88; O2SAT 96
[2017-10-30 12:18] VITALS: BP 144/87; PULSE 88; TEMP 36.9; O2SAT 96
== END 2017-10-30 13:56 | disposition home or self-care (01) | DRG 343 ==
LOC: C.EDB 23:47 → C.MSW 10-29 06:06 → ENRESERV 10-29 14:33 → C.2T 10-29 18:06
PROVIDERS: ADMIT Internal Medicine; ATTEND Hospitalist
PROC: 0DTJ4ZZ Resection of Appendix, Percutaneous Endoscopic Approach (ICD-10-PCS; principal; 2017-10-29 08:30)
DX: K35.80 Unspecified acute appendicitis (principal); I25.2 Old myocardial infarction; I25.10 Atherosclerotic heart disease of native coronary artery without angina pectoris; I10 Essential (primary) hypertension; E78.5 Hyperlipidemia, unspecified; J45.909 Unspecified asthma, uncomplicated; E66.9 Obesity, unspecified; Z79.82 Long term (current) use of aspirin; Z79.899 Other long term (current) drug therapy; Z87.891 Personal history of nicotine dependence; Z95.5 Presence of coronary angioplasty implant and graft